=== PATIENT | male | born 1940 | race Caucasian/White ===

== ENCOUNTER 2018-02-26 16:35 | Inpatient (IN) | payer MEDICARE ==
[2018-02-26] MEDS ORDERED: cefTRIAXone IN SWFI 2,000 MG/20 ML SYRINGE IVP STA (16:55)
[2018-02-26] MEDS ORDERED: NITROGLYCERIN OINT 1 INCH/GM PACKET TOPICAL STA (16:55)
[2018-02-26] MEDS ORDERED: SODIUM CHLORIDE 0.9% 1,000 ML IV STA (16:55)
[2018-02-26] MEDS ORDERED: ALBUTEROL NEBULIZED 2.5 MG/3 ML INHALATION STA ×2 (16:55→17:02)
[2018-02-26] MEDS ORDERED: IPRATROPIUM 0.5 MG/2.5 ML NEBU INHALATION STA (16:55)
[2018-02-26] MEDS ORDERED: methylPREDNISolone SOD SUCCI 125 MG/2 ML VIAL IV STA (16:55)
[2018-02-26] MEDS ORDERED: IPRATROPIUM-ALBUTEROL 3 ML NEB INHALATION STA (17:01)
[2018-02-26 17:35] LABS: Basophils % (A) 0 %; Eosinophils # (A) 0.3 k/uL (0-0.7); Eosinophils % (A) 3 %; HCT 38.2 % (39.0-53.0); HGB 13.2 gm/dL (13.0-17.5); Lymphocytes # (A) 1.5 k/uL (1.0-4.8); Lymphocytes % (A) 14 %; MCH 31.1 pg (25.0-35.0); MCHC 34.5 g/dL (31.0-37.0); MCV 90.3 fL (80.0-100.0); Monocytes # (A) 0.4 k/uL (0-1.0); Monocytes % (A) 4 %; Neutrophils # (A) 7.8 k/uL (1.3-7.7); Neutrophils % (A) 78 %; Platelet Count 122 k/uL (150-450); RBC 4.23 m/uL (4.30-5.90); RDW 15.1 % (11.5-15.5); WBC 10.1 k/uL (3.8-10.6)
[2018-02-26 17:40] LABS: ALT 29 U/L (21-72); AST 21 U/L (17-59); Albumin 3.5 g/dL (3.5-5.0); Alkaline Phosphatase 58 U/L (38-126); Anion Gap 9 mmol/L; Blood Urea Nitrogen 16 mg/dL (9-20); Calcium 8.8 mg/dL (8.4-10.2); Carbon Dioxide 29 mmol/L (22-30); Chloride 100 mmol/L (98-107); Glucose 90 mg/dL (74-99); Potassium 3.6 mmol/L (3.5-5.1); Sodium 138 mmol/L (137-145); Total Bilirubin 0.4 mg/dL (0.2-1.3); Total Protein 5.7 g/dL (6.3-8.2)
[2018-02-26 17:42] LABS: D-Dimer 0.43 mg/L FEU (<0.60); Partial Thromboplastin Time 23.6 sec (22.0-30.0); Prothrombin Time 9.5 sec (9.0-12.0)
[2018-02-26 17:54] LABS: Creatine Kinase 31 U/L (55-170)
[2018-02-26 18:07] LABS: Creatine Kinase MB 0.9 ng/mL (0.0-2.4); Troponin I <0.012 ng/mL (0.000-0.034)
[2018-02-26 18:15] LABS: ABG Base Excess 7.1 mmol/L; ABG HCO3 30 mmol/L (21-25); ABG Oxygen Saturation 89.8 % (94-97); ABG PCO2 36 mmHg (35-45); ABG PH 7.53 (7.35-7.45); ABG PO2 49 mmHg (83-108); ABG TCO2 31 mmol/L (19-24)
--- NOTE | 2018-02-26 18:44 | XR ---
EXAMINATION TYPE: XR chest 1V portable DATE OF EXAM: 02/26/2018 COMPARISON: NONE HISTORY: Short of breath TECHNIQUE: Single frontal view of the chest is obtained. FINDINGS: There are bilateral basilar pulmonary infiltrates. There is no heart failure. Heart size i s normal. There are chest leads. There is poor inspiration. IMPRESSION: New bilateral lower lobe pneumonia and atelectasis compared to old exam. No heart failur e.
[2018-02-26] MEDS ORDERED: AZITHROMYCIN 500 MG TAB PO STA (19:13)
[2018-02-26] MEDS ORDERED: PNEUMONIA PROTOCOL UTILIZED 1 EACH MISC PO PRN (19:22)
--- NOTE | 2018-02-26 19:22 | ED ---
SOB HPI - General Chief Complaint: Shortness of Breath Stated Complaint: chest pain Time Seen by Provider: 02/26/18 16:53 Source: patient Mode of arrival: ambulatory Limitations: no limitations - History of Present Illness Initial Comments: 77 years old male comes in with a shortness of breath is also complaining about the chest pain he said the chest. He had when he takes a deep breath he also had a fever on arrival his O2 sat was quite low his O2 sat was 86% with 2 L. He denies any abdominal pain no frequency urgency dysuria no symptoms of TIA or CVA - Related Data Home Medications Medication Instructions Recorded Confirmed Albuterol Sulfate [Proventil Hfa] 1 puff INHALATION RT-TID PRN 06/01/15 02/26/18 Allopurinol [Zyloprim] 300 mg PO DAILY 06/01/15 02/26/18 Aspirin 81 mg PO DAILY 06/01/15 02/26/18 Budesonide-Formot 160-4.5 Mcg 2 puff INHALATION RT-BID 06/01/15 02/26/18 [Symbicort 160-4.5 Mcg Inhaler] Carvedilol [Coreg] 3.125 mg PO BID 06/01/15 02/26/18 Finasteride [Proscar] 10 mg PO DAILY 06/01/15 02/26/18 Hydrochlorothiazide [Hydrodiuril] 25 mg PO DAILY 06/01/15 02/26/18 Levothyroxine Sodium [Synthroid] 50 mcg PO DAILY 06/01/15 02/26/18 Omeprazole [PriLOSEC] 20 mg PO AC-BID 06/01/15 02/26/18 Tamsulosin HCl [Flomax] 0.8 mg PO DAILY 06/01/15 02/26/18 Acetylcysteine [Mucomyst 10%] 500 mg INHALATION RT-BID 02/26/18 02/26/18 Albuterol Nebulized [Ventolin 2.5 mg INHALATION RT-BID 02/26/18 02/26/18 Nebulized] Amitriptyline HCl [Elavil] 50 mg PO HS 02/26/18 02/26/18 Bacitracin Oint 1 applic TOPICAL TID 02/26/18 02/26/18 Cephalexin [Keflex] 500 mg PO TID 02/26/18 02/26/18 Fluticasone Nasal [place] [Flonase 1 spray EA NOSTRIL BID 02/26/18 02/26/18 Nasal [place]] HYDROcodone/APAP 7.5-325MG [[place] 1 tab PO Q4-6H PRN 02/26/18 02/26/18 7.5-325] Ibuprofen [Motrin Ib] 200 mg PO ONCE PRN 02/26/18 02/26/18 Montelukast [Singulair] 10 mg PO HS 02/26/18 02/26/18 Nitroglycerin Sl Tabs [Nitrostat] 0.4 mg SUBLINGUAL Q5M PRN 02/26/18 02/26/18 Pregabalin [Lyrica] 150 mg PO BID 02/26/18 02/26/18 Sodium Chloride 0.65% Nasal [Deep 2 spray NASAL 5XD 02/26/18 02/26/18 Sea (Saline)] Tiotropium 18 Mcg/Puff [Spiriva] 1 cap INHALATION RT-DAILY 02/26/18 02/26/18 Allergies Allergy/AdvReac Type Severity Reaction Status Date / Time No Known Allergies Allergy Verified 02/26/18 16:53 Review of Systems ROS Statement: Those systems with pertinent positive or pertinent negative responses have been documented in the HPI. ROS Other: All systems not noted in ROS Statement are negative. Past Medical History Past Medical History: Asthma, COPD, GERD/Reflux, Hyperlipidemia, Hypertension, Osteoarthritis (OA), Pneumonia, Prostate Disorder, Sleep Apnea/CPAP/BIPAP, Thyroid Disorder Additional Past Medical History / Comment(s): GOUT; EDEMA IN FEET. History of Any Multi-Drug Resistant Organisms: None Reported Past Surgical History: Heart Catheterization, Hernia Repair Additional Past Surgical History / Comment(s): EXC ZEYAD CATARACTS. HIATAL HERNIA REPAIR. Past Anesthesia/Blood Transfusion Reactions: No Reported Reaction Past Psychological History: No Psychological Hx Reported Smoking Status: Former smoker Past Alcohol Use History: Occasional Past Drug Use History: None Reported - Past Family History Sister(s) Family Medical History: Cancer General Exam Limitations: no limitations Course Vital Signs 02/26/18 02/26/18 02/26/18 16:39 17:08 17:23 Temperature 98.5 F Pulse Rate 100 90 90 Respiratory 36 H 22 Rate Blood Pressure 130/68 119/60 O2 Sat by Pulse 84 L 91 L Oximetry 02/26/18 02/26/1818 17:24 17:50 18:08 Temperature 100.3 F H Pulse Rate 86 84 Respiratory 26 H 22 Rate Blood Pressure 123/59 119/56 O2 Sat by Pulse 91 L 91 L Oximetry 02/26/18 19:06 Temperature Pulse Rate 80 Respiratory Rate Blood Pressure 122/61 O2 Sat by Pulse 93 L Oximetry EKG is normal sinus rhythm ventricular rate is 97 SD interval is 154 QRS duration is 88 QT/QTc is 344/436 review of this EKG does not reveal any ST elevation or ST depression Medical Decision Making - Lab Data Result diagrams: 02/26/18 17:20 02/26/18 17:20 Lab Results 02/26/18 02/26/18 02/26/18 Range/Units 17:20 17:20 17:20 WBC 10.1 (3.8-10.6) k/uL RBC 4.23 L (4.30-5.90) m/uL Hgb 13.2 (13.0-17.5) gm/dL Hct 38.2 L (39.0-53.0) % MCV 90.3 (80.0-100.0) fL MCH 31.1 (25.0-35.0) pg MCHC 34.5 (31.0-37.0) g/dL RDW 15.1 (11.5-15.5) % Plt Count 122 L (150-450) k/uL Neutrophils % 78 % Lymphocytes % 14 % Monocytes % 4 % Eosinophils % 3 % Basophils % 0 % Neutrophils # 7.8 H (1.3-7.7) k/uL Lymphocytes # 1.5 (1.0-4.8) k/uL Monocytes # 0.4 (0-1.0) k/uL Eosinophils # 0.3 (0-0.7) k/uL Basophils # 0.0 (0-0.2) k/uL PT (9.0-12.0) sec INR (<1.2) APTT (22.0-30.0) sec D-Dimer (<0.60) mg/L FEU Sample Site ABG pH (7.35-7.45) ABG pCO2 (35-45) mmHg ABG pO2 (83-108) mmHg ABG HCO3 (21-25) mmol/L ABG Total CO2 (19-24) mmol/L ABG O2 Saturation (94-97) % ABG Base Excess mmol/L Rob Test FiO2 % Sodium 138 (137-145) mmol/L Potassium 3.6 (3.5-5.1) mmol/L Chloride 100 (98-107) mmol/L Carbon Dioxide 29 (22-30) mmol/L Anion Gap 9 mmol/L BUN 16 (9-20) mg/dL Creatinine 0.90 (0.66-1.25) mg/dL Est GFR (CKD-EPI)AfAm >90 (>60 ml/min/1.73 sqM) Est GFR (CKD-EPI)NonAf 83 (>60 ml/min/1.73 sqM) Glucose 90 (74-99) mg/dL Calcium 8.8 (8.4-10.2) mg/dL Total Bilirubin 0.4 (0.2-1.3) mg/dL AST 21 (17-59) U/L ALT 29 (21-72) U/L Alkaline Phosphatase 58 (38-126) U/L Total Creatine Kinase 31 L (55-170) U/L CK-MB (CK-2) 0.9 (0.0-2.4) ng/mL CK-MB (CK-2) Rel Index 2.9 Troponin I <0.012 (0.000-0.034) ng/mL NT-Pro-B Natriuret Pep pg/mL Total Protein 5.7 L (6.3-8.2) g/dL Albumin 3.5 (3.5-5.0) g/dL 02/26/18 02/26/18 02/26/18 Range/Units 17:20 17:20 18:07 WBC (3.8-10.6) k/uL RBC (4.30-5.90) m/uL Hgb (13.0-17.5) gm/dL Hct (39.0-53.0) % MCV (80.0-100.0) fL MCH (25.0-35.0) pg MCHC (31.0-37.0) g/dL RDW (11.5-15.5) % Plt Count (150-450) k/uL Neutrophils % % Lymphocytes % % Monocytes % % Eosinophils % % Basophils % % Neutrophils # (1.3-7.7) k/uL Lymphocytes # (1.0-4.8) k/uL Monocytes # (0-1.0) k/uL Eosinophils # (0-0.7) k/uL Basophils # (0-0.2) k/uL PT 9.5 (9.0-12.0) sec INR 1.0 (<1.2) APTT 23.6 (22.0-30.0) sec D-Dimer 0.43 (<0.60) mg/L FEU Sample Site RAD ABG pH 7.53 H (7.35-7.45) ABG pCO2 36 (35-45) mmHg ABG pO2 49 L (83-108) mmHg ABG HCO3 30 H (21-25) mmol/L ABG Total CO2 31 H (19-24) mmol/L ABG O2 Saturation 89.8 L (94-97) % ABG Base Excess 7.1 mmol/L Rob Test Yes FiO2 30 % Sodium (137-145) mmol/L Potassium (3.5-5.1) mmol/L Chloride (98-107) mmol/L Carbon Dioxide (22-30) mmol/L Anion Gap mmol/L BUN (9-20) mg/dL Creatinine (0.66-1.25) mg/dL Est GFR (CKD-EPI)AfAm (>60 ml/min/1.73 sqM) Est GFR (CKD-EPI)NonAf (>60 ml/min/1.73 sqM) Glucose (74-99) mg/dL Calcium (8.4-10.2) mg/dL Total Bilirubin (0.2-1.3) mg/dL AST (17-59) U/L ALT (21-72) U/L Alkaline Phosphatase (38-126) U/L Total Creatine Kinase (55-170) U/L CK-MB (CK-2) (0.0-2.4) ng/mL CK-MB (CK-2) Rel Index Troponin I (0.000-0.034) ng/mL NT-Pro-B Natriuret Pep 474 pg/mL Total Protein (6.3-8.2) g/dL Albumin (3.5-5.0) g/dL Critical Care Time Total Critical Care Time: 30 Critical Care Time: On arrival he was quite distressed out his respiratory rate was quite high he was using accessory muscles his O2 sat was 86% at that point we decided to start him on BiPAP in order the ABGs ABGs ABGs are reviewed I'd looks quite compensated is present in pH and bicarb is within normal range Treatments and steroids were given that helped him to feel better chest x-ray confirmed the infiltrate we start him on some Rocephin and Zithromax will consult Dr. chaves and I be admitted to Dr. Roy , his troponin is not elevated EKG rule out any myocardial infarction and d-dimer ruled out ruled out any pulmonary embolus with these findings were discussed with the patient Disposition Clinical Impression: COPD with acute exacerbation, Pneumonia, Hypoxia Disposition: ADMITTED IP TO THIS HOSP Condition: Good Referrals: [facility],Clinic [Primary Care Provider] - 1-2 days
[2018-02-26] MEDS ORDERED: IBUPROFEN 200 MG TAB PO PRN (19:27)
[2018-02-26] MEDS ORDERED: HYDROcodone/APAP 7.5-325MG 1 EACH TAB PO PRN (19:27)
[2018-02-26] MEDS ORDERED: NITROGLYCERIN SL TABS 0.4 MG TAB SUBLINGUAL PRN (19:27)
[2018-02-26] MEDS ORDERED: ALBUTEROL NEBULIZED 2.5 MG/3 ML INHALATION PRN (19:27)
[2018-02-26] MEDS: SYMBICORT 160-4.5 MCG INHALER INHALATION SCH (19:35)
[2018-02-26] MEDS: ALBUTEROL NEBULIZED 2.5 MG/3 ML INHALATION SCH (19:35)
[2018-02-26 21:48] VITALS: BMI 22.4
[2018-02-26] MEDS ORDERED: CEPHALEXIN 500 MG CAP PO SCH (22:00)
[2018-02-26] MEDS: FLUTICASONE 50MCG/SPRAY NASAL 16GM EA NOSTRIL SCH (22:05)
[2018-02-26] MEDS: AMITRIPTYLINE HCL 50 MG TAB PO SCH (22:06)
[2018-02-26] MEDS: CARVEDILOL 3.125 MG TAB PO SCH (22:06)
[2018-02-26] MEDS: BACITRACIN 500 UNIT/GM OINT 28.4 GM TUBE TOPICAL SCH (22:07)
[2018-02-26] MEDS: MONTELUKAST 10 MG TAB PO SCH (22:07)
[2018-02-26] MEDS: PREGABALIN 75 MG CAP PO SCH (22:09)
[2018-02-26] MEDS: SODIUM CHLORIDE 0.65% NASAL SPRAY 44 ML BTL NASAL SCH (22:17)
[2018-02-27] MEDS: SODIUM CHLORIDE 0.65% NASAL SPRAY 44 ML BTL NASAL SCH ×5 (00:03→20:10)
[2018-02-27 06:55] LABS: Basophils % (A) 0 %; Eosinophils % (A) 0 %; HCT 42.7 % (39.0-53.0); HGB 14.1 gm/dL (13.0-17.5); Lymphocytes # (A) 0.8 k/uL (1.0-4.8); Lymphocytes % (A) 7 %; MCH 30.6 pg (25.0-35.0); MCV 92.5 fL (80.0-100.0); Mean Platelet Volume 8.8; Monocytes # (A) 0.2 k/uL (0-1.0); Monocytes % (A) 2 %; Neutrophils # (A) 11.3 k/uL (1.3-7.7); Neutrophils % (A) 91 %; Platelet Count 153 k/uL (150-450); RBC 4.61 m/uL (4.30-5.90); RDW 15.2 % (11.5-15.5); WBC 12.4 k/uL (3.8-10.6)
[2018-02-27] MEDS: LEVOTHYROXINE 50 MCG TAB PO SCH (06:56)
[2018-02-27] MEDS: PANTOPRAZOLE 40 MG TABLET PO SCH (06:56)
[2018-02-27] MEDS: CARVEDILOL 3.125 MG TAB PO SCH ×2 (06:57→17:12)
[2018-02-27] MEDS: ALBUTEROL NEBULIZED 2.5 MG/3 ML INHALATION SCH ×2 (07:25→20:25)
[2018-02-27] MEDS: SYMBICORT 160-4.5 MCG INHALER INHALATION SCH ×2 (07:25→20:25)
--- NOTE | 2018-02-27 07:41 | XR ---
EXAMINATION TYPE: XR chest 2V DATE OF EXAM: 02/27/2018 COMPARISON: 02/26/2018 HISTORY: 77-year-old male pneumonia follow-up TECHNIQUE: Frontal and lateral views FINDINGS: Heart normal size. Aorta and pulmonary vasculature within normal limits. Flattening of hemidiaphragms and hyperinflation compatible with COPD. Improving patchy bibasilar densities. No pleural effusion. IMPRESSION: COPD with improving bibasilar infiltrates or atelectasis. Residual densities remain.
[2018-02-27] MEDS ORDERED: IPRATROPIUM 0.5 MG/2.5 ML NEBU INHALATION SCH (08:00)
[2018-02-27] MEDS ORDERED: HYDROCHLOROTHIAZIDE 25 MG TAB PO SCH (09:00)
[2018-02-27] MEDS ORDERED: methylPREDNISolone SOD SUCCI 125 MG/2 ML VIAL IV SCH (09:00)
--- NOTE | 2018-02-27 09:25 | P.CNPUL ---
History of Present Illness Consult date: 02/27/18 Requesting physician: Golden Roy Reason for consult: COPD Chief complaint: shortness of breath History of present illness: This is a 77-year-old male patient who is well-known to our services being seen examined and evaluated today on rounds. This patient came into the hospital with fevers at home as well as shortness of breath had been progressively getting worse over the last 2 days. The patient did recently have outpatient surgery at the for his nasal polyps. Patient states he was discharged home and ever since then has been feeling under the weather. At home he does use Symbicort Spiriva and pro-air. He states his MDIs were not helping him therefore he came in. He does have 2 L of supplemental oxygen at home at all times. When he came into the ER he was 86% on 2 L and required additional titration of oxygen. His chest x-ray did show new bilateral lower lobe pneumonia and atelectasis compared to his old exams. Upon examination the patient's resting up in bed on 2-1/2-3 L of supplemental oxygen. He states he is feeling somewhat better today however not at baseline. He did receive IV antibiotics in the emergency room. He has been responding well to his breathing treatments. He did receive 1 dose of IV steroids, additional scheduled steroids will be ordered. Review of Systems 14 point review of systems was completed and is negative unless noted above in HPI Past Medical History Past Medical History: Asthma, COPD, GERD/Reflux, Hyperlipidemia, Hypertension, Osteoarthritis (OA), Pneumonia, Prostate Disorder, Sleep Apnea/CPAP/BIPAP, Thyroid Disorder Additional Past Medical History / Comment(s): GOUT; EDEMA IN FEET. History of Any Multi-Drug Resistant Organisms: None Reported Past Surgical History: Heart Catheterization, Hernia Repair Additional Past Surgical History / Comment(s): EXC ZEYAD CATARACTS. HIATAL HERNIA REPAIR. nose s02-24-2018 in [facility] Past Anesthesia/Blood Transfusion Reactions: No Reported Reaction Smoking Status: Former smoker - Past Family History Sister(s) Family Medical History: Cancer Medications and Allergies Home Medications Medication Instructions Recorded Confirmed Type Albuterol Sulfate [Proventil Hfa] 1 puff INHALATION RT-TID PRN 06/01/15 History Allopurinol [Zyloprim] 300 mg PO DAILY 06/01/15 02/26/18 History Aspirin 81 mg PO DAILY 06/01/15 02/26/18 History Budesonide-Formot 160-4.5 Mcg 2 puff INHALATION RT-BID 06/01/15 02/26/18 History [Symbicort 160-4.5 Mcg Inhaler] Carvedilol [Coreg] 3.125 mg PO BID 06/01/15 02/26/18 History Finasteride [Proscar] 10 mg PO DAILY 06/01/15 02/26/18 History Hydrochlorothiazide [Hydrodiuril] 25 mg PO DAILY 06/01/15 02/26/18 History Levothyroxine Sodium [Synthroid] 50 mcg PO DAILY 06/01/15 02/26/18 History Omeprazole [PriLOSEC] 20 mg PO AC-BID 06/01/15 02/26/18 History Tamsulosin HCl [Flomax] 0.8 mg PO DAILY 06/01/15 02/26/18 History Acetylcysteine [Mucomyst 10%] 500 mg INHALATION RT-BID 02/26/18 02/26/18 History Albuterol Nebulized [Ventolin 2.5 mg INHALATION RT-BID 02/26/18 02/26/18 History Nebulized] Amitriptyline HCl [Elavil] 50 mg PO HS 02/26/18 02/26/18 History Bacitracin Oint 1 applic TOPICAL TID 02/26/18 02/26/18 History Cephalexin [Keflex] 500 mg PO TID 02/26/18 02/26/18 History Fluticasone Nasal [place] [Flonase 1 spray EA NOSTRIL BID 02/26/18 02/26/18 History Nasal [place]] HYDROcodone/APAP 7.5-325MG [[place] 1 tab PO Q4-6H PRN 02/26/18 02/26/18 History 7.5-325] Ibuprofen [Motrin Ib] 200 mg PO ONCE PRN 02/26/18 02/26/18 History Montelukast [Singulair] 10 mg PO HS 02/26/18 02/26/18 History Nitroglycerin Sl Tabs [Nitrostat] 0.4 mg SUBLINGUAL Q5M PRN 02/26/18 02/26/18 History Pregabalin [Lyrica] 150 mg PO BID 02/26/18 02/26/18 History Sodium Chloride 0.65% Nasal [Deep 2 spray NASAL 5XD 02/26/18 02/26/18 History Sea (Saline)] Tiotropium 18 Mcg/Puff [Spiriva] 1 cap INHALATION RT-DAILY 02/26/18 02/26/18 History Allergies Allergy/AdvReac Type Severity Reaction Status Date / Time No Known Allergies Allergy Verified 02/26/18 16:53 Physical Exam Vitals: Vital Signs Temp Pulse Pulse Resp BP BP Pulse Ox 02/27/18 07:26 93 L 02/27/18 07:25 88 02/27/18 03:39 87 18 02/27/18 03:37 97.1 F L 87 18 120/64 92 L 02/26/18 23:24 83 17 02/26/18 23:20 97.1 F L 83 17 107/61 92 L 02/26/18 22:00 76 18 02/26/18 21:43 98.1 F 76 18 123/73 93 L 02/26/18 20:28 98.1 F 82 76 20 129/64 123/73 93 L 02/26/18 19:45 81 02/26/18 19:35 80 02/26/18 19:26 22 96 02/26/18 19:06 80 122/61 93 L 02/26/18 18:08 84 119/56 91 L 02/26/18 17:50 100.3 F H 86 22 123/59 91 L 02/26/18 17:24 26 H 02/26/18 17:23 90 02/26/18 17:08 90 22 119/60 91 L 02/26/18 16:39 98.5 F 100 36 H 130/68 84 L Intake and Output 02/26/18 02/27/18 02/27/18 22:59 06:59 14:59 Intake Total 800 240 Balance 800 240 Intake: Intake, IV Titration 600 Amount Sodium Chloride 0.9% 1, 600 000 ml @ 75 mls/hr IV . [id number] STA Rx#:[id number] Oral 200 240 Other: Voiding Method Toilet Toilet # Voids 1 2 Weight 71.1 kg 77.6 kg GENERAL EXAM: Alert, tired, comfortable in no apparent distress. HEAD: Normocephalic. EYES: Normal reaction of pupils, equal size. NOSE: Clear with pink turbinates. THROAT: No erythema or exudates. NECK: No masses, no JVD. CHEST: No chest wall deformity. LUNGS: Lung sounds decreased, faint bilateral expiratory wheeze CVS: S1 and S2 normal with no audible mumurs, regular rhythm. ABDOMEN: No hepatosplenomegaly, normal bowel sounds, no guarding or rigidity. EXTREMITIES: No edema noted, pedal pulses palpable. CENTRAL NERVOUS SYSTEM: No focal deficits, tone is normal in all 4 extremities. Results - Laboratory Findings CBC and BMP: 02/27/18 05:53 02/27/18 05:53 ABG ABG pH 7.53 (7.35-7.45) H 02/26/18 18:07 ABG pCO2 36 mmHg (35-45) 02/26/18 18:07 ABG pO2 49 mmHg (83-108) L 02/26/18 18:07 ABG O2 Saturation 89.8 % (94-97) L 02/26/18 18:07 PT/INR, D-dimer PT 9.5 sec (9.0-12.0) 02/26/18 17:20 INR 1.0 (<1.2) 02/26/18 17:20 D-Dimer 0.43 mg/L FEU (<0.60) 02/26/18 17:20 Abnormal lab findings: Abnormal Labs 02/26/18 02/26/18 02/26/18 17:20 17:20 17:20 WBC RBC 4.23 L Hct 38.2 L Plt Count 122 L Neutrophils # 7.8 H Lymphocytes # ABG pH ABG pO2 ABG HCO3 ABG Total CO2 ABG O2 Saturation Glucose Total Creatine Kinase 31 L Total Protein 5.7 L 02/26/18 02/27/18 02/27/18 18:07 05:53 05:53 WBC 12.4 H RBC Hct Plt Count Neutrophils # 11.3 H Lymphocytes # 0.8 L ABG pH 7.53 H ABG pO2 49 L ABG HCO3 30 H ABG Total CO2 31 H ABG O2 Saturation 89.8 L Glucose 199 H Total Creatine Kinase Total Protein - Diagnostic Findings Chest x-ray: report reviewed, image reviewed Assessment and Plan Assessment: Assessment Acute exacerbation of COPD Acute on chronic hypoxic respiratory failure requiring supplemental oxygen Bilateral pneumonia, suspect mixed bacterial Acute exacerbation of chronic moderate persistent asthma Status post recent outpatient nasal surgery at Obstructive sleep apnea Hypertension Hyperlipidemia Plan Medications have been reviewed and will be continued as ordered. Continue with antibiotics and IV steroids Continue with pulmonary hygiene, coughing and deep breathing exercises, and supportive care. Supplemental oxygen to maintain oxygen saturations of 92% or better. Continue nebulizer treatments. Initiate and encourage incentive spirometer Obtain sputum culture GI and DVT prophylaxis. We will continue to monitor labs/results and adjust treatment as necessary. Further recommendations pending. Patient for this consultation we will continue to follow this patient with you I performed an examination of the patient and discussed their management with the nurse practitioner. I have reviewed the nurse practitioner's note and agree with the documented findings and plan of care.
[2018-02-27] MEDS: FINASTERIDE 5 MG TAB PO SCH (09:55)
[2018-02-27] MEDS: AZITHROMYCIN 500 MG TAB PO SCH (09:55)
[2018-02-27] MEDS: TAMSULOSIN 0.4 MG CAP.ER.24H PO SCH (09:55)
[2018-02-27] MEDS: ALLOPURINOL 300 MG TAB PO SCH (09:56)
[2018-02-27] MEDS: ASPIRIN 81 MG PO SCH (09:56)
[2018-02-27] MEDS: BACITRACIN 500 UNIT/GM OINT 28.4 GM TUBE TOPICAL SCH ×3 (09:56→20:09)
[2018-02-27] MEDS: FLUTICASONE 50MCG/SPRAY NASAL 16GM EA NOSTRIL SCH ×2 (09:57→20:14)
[2018-02-27] MEDS: PREGABALIN 75 MG CAP PO SCH ×2 (10:06→20:13)
[2018-02-27] MEDS: cefTRIAXone IN SWFI 1,000 MG/10 ML SYRINGE IVP SCH (10:06)
[2018-02-27 11:37] LABS: Glucose,Whole Blood 276 mg/dL (75-99)
[2018-02-27] MEDS: INSULIN ASPART 100 UNIT/ML 1 ML 10 ML VIAL SQ SCH ×3 (12:05→20:59)
--- NOTE | 2018-02-27 12:07 | P.HPIM ---
History of Present Illness 77-year-old pleasant gentleman with known history of COPD uses 2 L of onset at home came in with complaints of a fever chills does have leukocytosis appears to have bilateral lower lower leg but infiltrates. Patient is saturating at the 86% on arrival to ER. Patient was according. 3 L of oxygen patient was started on antibiotics for pneumonia. Patient had a recent massive procedure which is a nasal polyp removal. Patient was comparing of cough with sputum production. Patient does not have any significant wheezing on exam also which IV steroids to oral steroids. Patient will be continued on antibiotics. Used to be a smoker quit smoking years ago. Review of Systems REVIEW OF SYSTEMS: CONSTITUTIONAL: As mentioned in HPI. HEENT: No recent visual problems or hearing problems. Denied any sore throat. CARDIOVASCULAR: No chest pain, orthopnea, PND, no palpitations, no syncope. PULMONARY: no hemoptysis. GASTROINTESTINAL: No diarrhea, no nausea, no vomiting, no abdominal pain. Normoactive bowel sounds. NEUROLOGICAL: No headaches, no weakness, no numbness. HEMATOLOGICAL: Denies any bleeding or petechiae. GENITOURINARY: Denies any burning micturition, frequency, or urgency. MUSCULOSKELETAL/RHEUMATOLOGICAL: Denies any joint pain, swelling, or any muscle pain. ENDOCRINE: Denies any polyuria or polydipsia. The rest of the 14-point review of systems is negative. Past Medical History Past Medical History: Asthma, COPD, GERD/Reflux, Hyperlipidemia, Hypertension, Osteoarthritis (OA), Pneumonia, Prostate Disorder, Sleep Apnea/CPAP/BIPAP, Thyroid Disorder Additional Past Medical History / Comment(s): GOUT; EDEMA IN FEET. History of Any Multi-Drug Resistant Organisms: None Reported Past Surgical History: Heart Catheterization, Hernia Repair Additional Past Surgical History / Comment(s): EXC ZEYAD CATARACTS. HIATAL HERNIA REPAIR. nose s02-24-2018 in [facility] Past Anesthesia/Blood Transfusion Reactions: No Reported Reaction Smoking Status: Former smoker - Past Family History Sister(s) Family Medical History: Cancer Medications and Allergies Home Medications Medication Instructions Recorded Confirmed Type Albuterol Sulfate [Proventil Hfa] 1 puff INHALATION RT-TID PRN 06/01/15 History Allopurinol [Zyloprim] 300 mg PO DAILY 06/01/15 02/26/18 History Aspirin 81 mg PO DAILY 06/01/15 02/26/18 History Budesonide-Formot 160-4.5 Mcg 2 puff INHALATION RT-BID 06/01/15 02/26/18 History [Symbicort 160-4.5 Mcg Inhaler] Carvedilol [Coreg] 3.125 mg PO BID 06/01/15 02/26/18 History Finasteride [Proscar] 10 mg PO DAILY 06/01/15 02/26/18 History Hydrochlorothiazide [Hydrodiuril] 25 mg PO DAILY 06/01/15 02/26/18 History Levothyroxine Sodium [Synthroid] 50 mcg PO DAILY 06/01/15 02/26/18 History Omeprazole [PriLOSEC] 20 mg PO AC-BID 06/01/15 02/26/18 History Tamsulosin HCl [Flomax] 0.8 mg PO DAILY 06/01/15 02/26/18 History Acetylcysteine [Mucomyst 10%] 500 mg INHALATION RT-BID 02/26/18 02/26/18 History Albuterol Nebulized [Ventolin 2.5 mg INHALATION RT-BID 02/26/18 02/26/18 History Nebulized] Amitriptyline HCl [Elavil] 50 mg PO HS 02/26/18 02/26/18 History Bacitracin Oint 1 applic TOPICAL TID 02/26/18 02/26/18 History Cephalexin [Keflex] 500 mg PO TID 02/26/18 02/26/18 History Fluticasone Nasal [place] [Flonase 1 spray EA NOSTRIL BID 02/26/18 02/26/18 History Nasal [place]] HYDROcodone/APAP 7.5-325MG [[place] 1 tab PO Q4-6H PRN 02/26/18 02/26/18 History 7.5-325] Ibuprofen [Motrin Ib] 200 mg PO ONCE PRN 02/26/18 02/26/18 History Montelukast [Singulair] 10 mg PO HS 02/26/18 02/26/18 History Nitroglycerin Sl Tabs [Nitrostat] 0.4 mg SUBLINGUAL Q5M PRN 02/26/18 02/26/18 History Pregabalin [Lyrica] 150 mg PO BID 02/26/18 02/26/18 History Sodium Chloride 0.65% Nasal [Deep 2 spray NASAL 5XD 02/26/18 02/26/18 History Sea (Saline)] Tiotropium 18 Mcg/Puff [Spiriva] 1 cap INHALATION RT-DAILY 02/26/18 02/26/18 History Allergies Allergy/AdvReac Type Severity Reaction Status Date / Time No Known Allergies Allergy Verified 02/26/18 16:53 Physical Exam Vitals: Vital Signs Temp Pulse Pulse Resp BP BP Pulse Ox 02/27/18 07:50 97.0 F L 65 18 123/70 90 L 02/27/18 07:26 93 L 02/27/18 07:25 88 02/27/18 03:39 87 18 02/27/18 03:37 97.1 F L 87 18 120/64 92 L 02/26/18 23:24 83 17 02/26/18 23:20 97.1 F L 83 17 107/61 92 L 02/26/18 22:00 76 18 02/26/18 21:43 98.1 F 76 18 123/73 93 L 02/26/18 20:28 98.1 F 82 76 20 129/64 123/73 93 L 02/26/18 19:45 81 02/26/18 19:35 80 02/26/18 19:26 22 96 02/26/18 19:06 80 122/61 93 L 02/26/18 18:08 84 119/56 91 L 02/26/18 17:50 100.3 F H 86 22 123/59 91 L 02/26/18 17:24 26 H 02/26/18 17:23 90 02/26/18 17:08 90 22 119/60 91 L 02/26/18 16:39 98.5 F 100 36 H 130/68 84 L Intake and Output 02/26/18 02/27/18 02/27/18 22:59 06:59 14:59 Intake Total 800 240 Balance 800 240 Intake: Intake, IV Titration 600 Amount Sodium Chloride 0.9% 1, 600 000 ml @ 75 mls/hr IV . [id number] Rx#:[id number] Oral 200 240 Other: Voiding Method Toilet Toilet # Voids 1 2 Weight 71.1 kg 77.6 kg PHYSICAL EXAMINATION: GENERAL: The patient is alert and oriented x3, not in any acute distress. Well developed, well nourished. She does have a Simón's and does have chills when I examine the patient. HEENT: Pupils are round and equally reacting to light. EOMI. No scleral icterus. No conjunctival pallor. Normocephalic, atraumatic. No pharyngeal erythema. No thyromegaly. CARDIOVASCULAR: S1 and S2 present. No murmurs, rubs, or gallops. PULMONARY: Minimal expiratory wheezing was appreciated no crackles are appreciated on lung exam. ABDOMEN: Soft, nontender, nondistended, normoactive bowel sounds. No palpable organomegaly. MUSCULOSKELETAL: No joint swelling or deformity. EXTREMITIES: No cyanosis, clubbing, or pedal edema. NEUROLOGICAL: Gross neurological examination did not reveal any focal deficits. SKIN: No rashes. Results CBC & Chem 7: 02/27/18 05:53 02/27/18 05:53 Labs: Abnormal Lab Results - Last 24 Hours (Table) 02/26/18 02/26/18 02/26/18 Range/Units 17:20 17:20 17:20 WBC (3.8-10.6) k/uL RBC 4.23 L (4.30-5.90) m/uL Hct 38.2 L (39.0-53.0) % Plt Count 122 L (150-450) k/uL Neutrophils # 7.8 H (1.3-7.7) k/uL Lymphocytes # (1.0-4.8) k/uL ABG pH (7.35-7.45) ABG pO2 (83-108) mmHg ABG HCO3 (21-25) mmol/L ABG Total CO2 (19-24) mmol/L ABG O2 Saturation (94-97) % Glucose (74-99) mg/dL POC Glucose (mg/dL) (75-99) mg/dL Total Creatine Kinase 31 L (55-170) U/L Total Protein 5.7 L (6.3-8.2) g/dL 02/26/18 02/27/18 02/27/18 Range/Units 18:07 05:53 05:53 WBC 12.4 H (3.8-10.6) k/uL RBC (4.30-5.90) m/uL Hct (39.0-53.0) % Plt Count (150-450) k/uL Neutrophils # 11.3 H (1.3-7.7) k/uL Lymphocytes # 0.8 L (1.0-4.8) k/uL ABG pH 7.53 H (7.35-7.45) ABG pO2 49 L (83-108) mmHg ABG HCO3 30 H (21-25) mmol/L ABG Total CO2 31 H (19-24) mmol/L ABG O2 Saturation 89.8 L (94-97) % Glucose 199 H (74-99) mg/dL POC Glucose (mg/dL) (75-99) mg/dL Total Creatine Kinase (55-170) U/L Total Protein (6.3-8.2) g/dL 02/27/18 Range/Units 11:22 WBC (3.8-10.6) k/uL RBC (4.30-5.90) m/uL Hct (39.0-53.0) % Plt Count (150-450) k/uL Neutrophils # (1.3-7.7) k/uL Lymphocytes # (1.0-4.8) k/uL ABG pH (7.35-7.45) ABG pO2 (83-108) mmHg ABG HCO3 (21-25) mmol/L ABG Total CO2 (19-24) mmol/L ABG O2 Saturation (94-97) % Glucose (74-99) mg/dL POC Glucose (mg/dL) 276 H (75-99) mg/dL Total Creatine Kinase (55-170) U/L Total Protein (6.3-8.2) g/dL Thrombosis Risk Factor Assmnt - Choose All That Apply Each Factor Represents 1 point: Serious lung disease incl. pneumonia (< 1month) Other Risk Factors: No Other congenital or acquired thrombophilia - If yes, enter type in comment: No Thrombosis Risk Factor Assessment Total Risk Factor Score: 1 Thrombosis Risk Factor Assessment Level: Low Risk Assessment and Plan Plan: -Sepsis probably secondary to bilateral pneumonia, mostly pneumococcal pneumonia patient is on Rocephin and azithromycin which will be continued -Acute on chronic hypercapnic respiratory failure secondary to COPD exacerbation as there is no significant wheezing all switch him to oral steroids. Awaiting blood cultures and sputum cultures. -Asked her to sleep apnea -hypertension -Hyperlipidemia -Gastroesophageal reflux disease -Hypothyroidism Or omission chronic medical problems patient will be resumed and continued on appropriate home medications.
[2018-02-27 16:54] LABS: Glucose,Whole Blood 242 mg/dL (75-99)
[2018-02-27 19:30] LABS: Hemoglobin A1C 5.2 % (4.0-6.0)
[2018-02-27] MEDS: MONTELUKAST 10 MG TAB PO SCH (20:09)
[2018-02-27] MEDS: AMITRIPTYLINE HCL 50 MG TAB PO SCH (20:10)
[2018-02-27 20:27] LABS: Glucose,Whole Blood 275 mg/dL (75-99)
[2018-02-27] MEDS ORDERED: FAMOTIDINE 20 MG TAB PO SCH (21:00)
[2018-02-28] MEDS: SODIUM CHLORIDE 0.65% NASAL SPRAY 44 ML BTL NASAL SCH ×3 (00:06→12:11)
[2018-02-28 00:48] VITALS: RESP 16
[2018-02-28] MEDS: LEVOTHYROXINE 50 MCG TAB PO SCH (06:09)
[2018-02-28 06:23] VITALS: BP 124/68; TEMP 97.6
[2018-02-28 07:01] LABS: Glucose,Whole Blood 187 mg/dL (75-99)
[2018-02-28] MEDS: INSULIN ASPART 100 UNIT/ML 1 ML 10 ML VIAL SQ SCH ×2 (07:24→12:11)
[2018-02-28 07:32] LABS: HCT 37.3 % (39.0-53.0); HGB 12.8 gm/dL (13.0-17.5); MCHC 34.3 g/dL (31.0-37.0); MCV 90.3 fL (80.0-100.0); Mean Platelet Volume 9.5; Platelet Count 137 k/uL (150-450); RBC 4.13 m/uL (4.30-5.90); RDW 14.8 % (11.5-15.5); WBC 15.5 k/uL (3.8-10.6)
[2018-02-28 07:45] LABS: Anion Gap 11 mmol/L; Blood Urea Nitrogen 22 mg/dL (9-20); Carbon Dioxide 30 mmol/L (22-30); Chloride 101 mmol/L (98-107); Glucose 156 mg/dL (74-99); Potassium 3.9 mmol/L (3.5-5.1); Sodium 142 mmol/L (137-145)
[2018-02-28] MEDS: SYMBICORT 160-4.5 MCG INHALER INHALATION SCH (08:50)
[2018-02-28] MEDS: ALBUTEROL NEBULIZED 2.5 MG/3 ML INHALATION SCH (08:50)
[2018-02-28] MEDS: cefTRIAXone IN SWFI 1,000 MG/10 ML SYRINGE IVP SCH (08:56)
[2018-02-28] MEDS: PANTOPRAZOLE 40 MG TABLET PO SCH (08:57)
[2018-02-28] MEDS: TAMSULOSIN 0.4 MG CAP.ER.24H PO SCH ×2 (08:57→09:19)
[2018-02-28] MEDS: AZITHROMYCIN 500 MG TAB PO SCH (08:57)
[2018-02-28] MEDS: CARVEDILOL 3.125 MG TAB PO SCH (08:57)
[2018-02-28] MEDS: ALLOPURINOL 300 MG TAB PO SCH (08:57)
[2018-02-28] MEDS: FLUTICASONE 50MCG/SPRAY NASAL 16GM EA NOSTRIL SCH ×2 (08:57→09:17)
[2018-02-28] MEDS: FINASTERIDE 5 MG TAB PO SCH (08:57)
[2018-02-28] MEDS: PREGABALIN 75 MG CAP PO SCH (08:57)
[2018-02-28] MEDS: ASPIRIN 81 MG PO SCH ×2 (08:57→09:17)
[2018-02-28] MEDS: BACITRACIN 500 UNIT/GM OINT 28.4 GM TUBE TOPICAL SCH ×2 (08:58→09:17)
[2018-02-28] MEDS ORDERED: predniSONE 20 MG TAB PO SCH (09:00)
[2018-02-28 09:04] VITALS: PULSE 84
--- NOTE | 2018-02-28 10:47 | PN ---
PROGRESS NOTE He was seen again on 02/01/2018. He has been hemodynamically stable and doing better overall. He has been afebrile since the . PHYSICAL EXAMINATION: On physical examination his vitals are stable. He is afebrile. His chest is relatively clear. Cardiovascular system reveals an S1, S2. Abdomen is soft. There is no pedal edema. White count of 15.5, hemoglobin of 12.8. Microbiological cultures have had no growth. IMPRESSION AT THIS TIME: 1. Aspiration type pneumonia. 2. Chronic obstructive pulmonary disease with acute exacerbation. Would switch him to Augmentin, increase his activity level. Agree with possible discharge planning today or tomorrow with a quick steroid taper. MMODL / IJN: [id number] /
--- NOTE | 2018-02-28 11:26 | P.DS ---
Providers Date of admission: 02/26/18 19:22 Attending physician: Golden Roy Consults: 02/26/18 19:22 Consult Physician Stat Consulting Provider: Jaguar Bynum Consult Reason/Comments: Acute exacerbation of COPD Do you want consulting provider notified?: Yes Primary care physician: [facility] Hospital Course: 77-year-old admitted for COPD exacerbation and bilateral lower lobe pneumonia patient is feeling better wanted to be discharged. Patient will be discharged on Augmentin for 7 more days patient is cleared for discharge. Patient ideally will benefit from one more day of hospitalization but the wishing to go home because of which I'm discharge and the patient patient uses 2-3 L at home patient is on presently on 3 L of oxygen patient has minimal wheezing on exam. And bibasilar crackles were appreciated. PHYSICAL EXAMINATION: GENERAL: The patient is alert and oriented x3, not in any acute distress. Well developed, well nourished. HEENT: Pupils are round and equally reacting to light. EOMI. No scleral icterus. No conjunctival pallor. Normocephalic, atraumatic. No pharyngeal erythema. No thyromegaly. CARDIOVASCULAR: S1 and S2 present. No murmurs, rubs, or gallops. PULMONARY: minimal expiratory wheezing was appreciated. ABDOMEN: Soft, nontender, nondistended, normoactive bowel sounds. No palpable organomegaly. MUSCULOSKELETAL: No joint swelling or deformity. EXTREMITIES: No cyanosis, clubbing, or pedal edema. NEUROLOGICAL: Gross neurological examination did not reveal any focal deficits. SKIN: No rashes. Assessment and Plan Plan: -Sepsis probably secondary to bilateral pneumonia, mostly pneumococcal pneumonia all aspiration ammonia patient is being discharged on Augmentin -Acute on chronic hypercapnic respiratory failure secondary to COPD exacerbation improved wheezing -Obstructive sleep apnea -hypertension -Hyperlipidemia -Gastroesophageal reflux disease -Hypothyroidism Patient Condition at Discharge: Good Plan - Discharge Summary Discharge Rx Participant: No New Discharge Prescriptions: New Amoxic-Pot Clav 500-125 mg [Augmentin 500-125 mg] 1 each PO BID #14 tab predniSONE 10 mg PO DAILY #30 tab Continue Aspirin 81 mg PO DAILY Budesonide-Formot 160-4.5 Mcg [Symbicort 160-4.5 Mcg Inhaler] 2 puff INHALATION RT-BID Albuterol Sulfate [Proventil Hfa] 1 puff INHALATION RT-TID PRN PRN Reason: Shortness Of Breath Tamsulosin HCl [Flomax] 0.8 mg PO DAILY Omeprazole [PriLOSEC] 20 mg PO AC-BID Allopurinol [Zyloprim] 300 mg PO DAILY Carvedilol [Coreg] 3.125 mg PO BID Levothyroxine Sodium [Synthroid] 50 mcg PO DAILY Finasteride [Proscar] 10 mg PO DAILY Nitroglycerin Sl Tabs [Nitrostat] 0.4 mg SUBLINGUAL Q5M PRN PRN Reason: Chest Pain Montelukast [Singulair] 10 mg PO HS Amitriptyline HCl [Elavil] 50 mg PO HS Tiotropium 18 Mcg/Puff [Spiriva] 1 cap INHALATION RT-DAILY Sodium Chloride 0.65% Nasal [[place] (Saline)] 2 spray NASAL 5XD Pregabalin [Lyrica] 150 mg PO BID HYDROcodone/APAP 7.5-325MG [[place] 7.5-325] 1 tab PO Q4-6H PRN PRN Reason: Pain Fluticasone Nasal [place] [Flonase Nasal [place]] 1 spray EA NOSTRIL BID Bacitracin Oint 1 applic TOPICAL TID Albuterol Nebulized [Ventolin Nebulized] 2.5 mg INHALATION RT-BID Acetylcysteine [Mucomyst 10%] 500 mg INHALATION RT-BID Ibuprofen [Motrin Ib] 200 mg PO ONCE PRN PRN Reason: Chest Pain Discontinued Hydrochlorothiazide [Hydrodiuril] 25 mg PO DAILY Cephalexin [Keflex] 500 mg PO TID Discharge Medication List Albuterol Sulfate [Proventil Hfa] 1 puff INHALATION RT-TID PRN 06/01/15 [History ] Allopurinol [Zyloprim] 300 mg PO DAILY 06/01/15 [History] Aspirin 81 mg PO DAILY 06/01/15 [History] Budesonide-Formot 160-4.5 Mcg [Symbicort 160-4.5 Mcg Inhaler] 2 puff INHALATION RT-BID 06/01/15 [History] Carvedilol [Coreg] 3.125 mg PO BID 06/01/15 [History] Finasteride [Proscar] 10 mg PO DAILY 06/01/15 [History] Levothyroxine Sodium [Synthroid] 50 mcg PO DAILY 06/01/15 [History] Omeprazole [PriLOSEC] 20 mg PO AC-BID 10/01/15 [History] Tamsulosin HCl [Flomax] 0.8 mg PO DAILY 06/01/15 [History] Acetylcysteine [Mucomyst 10%] 500 mg INHALATION RT-BID 02/26/18 [History] Albuterol Nebulized [Ventolin Nebulized] 2.5 mg INHALATION RT-BID 02/26/18 [ History] Amitriptyline HCl [Elavil] 50 mg PO HS 02/26/18 [History] Bacitracin Oint 1 applic TOPICAL TID 02/26/18 [History] Fluticasone Nasal [place] [Flonase Nasal [place]] 1 spray EA NOSTRIL BID 02/26/18 [ History] HYDROcodone/APAP 7.5-325MG [[place] 7.5-325] 1 tab PO Q4-6H PRN 02/26/18 [History] Ibuprofen [Motrin Ib] 200 mg PO ONCE PRN 02/26/18 [History] Montelukast [Singulair] 10 mg PO HS 02/26/18 [History] Nitroglycerin Sl Tabs [Nitrostat] 0.4 mg SUBLINGUAL Q5M PRN 02/26/18 [History] Pregabalin [Lyrica] 150 mg PO BID 02/26/18 [History] Sodium Chloride 0.65% Nasal [[place] (Saline)] 2 spray NASAL 5XD 02/26/18 [ History] Tiotropium 18 Mcg/Puff [Spiriva] 1 cap INHALATION RT-DAILY 02/26/18 [History] Amoxic-Pot Clav 500-125 mg [Augmentin 500-125 mg] 1 each PO BID #14 tab [Rx] predniSONE 10 mg PO DAILY #30 tab 02/28/18 [Rx] Follow up Appointment(s)/Referral(s): Jaguar Bynum MD [STAFF PHYSICIAN] - 1 Week [facility] [Primary Care Provider] - 3 Days (spoke to administrative receptionist, will call with appointment time) Activity/Diet/Wound Care/Special Instructions: Please contact CM at discharge regarding medications - may need indigent funds Discharge Disposition: HOME SELF-CARE
[2018-02-28 11:55] LABS: Glucose,Whole Blood 220 mg/dL (75-99)
[2018-02-28] MEDS ORDERED: AMOXIC-POT CLAV 500-125 MG 1 EACH TAB PO SCH (21:00)
[2018-02-28] MEDS ORDERED: TAMSULOSIN 0.4 MG CAP.ER.24H PO SCH (21:00)
== END 2018-02-28 13:22 | disposition home or self-care (01) | DRG 871 ==
LOC: EC 16:35 → 6SEL 19:22 → 5MS5E 02-27 21:19
PROVIDERS: ADMIT Hospitalist; ATTEND Hospitalist
DX: A41.9 Sepsis, unspecified organism (principal); J13 Pneumonia due to Streptococcus pneumoniae; J96.21 Acute and chronic respiratory failure with hypoxia; J96.22 Acute and chronic respiratory failure with hypercapnia; J44.0 Chronic obstructive pulmonary disease with (acute) lower respiratory infection; J44.1 Chronic obstructive pulmonary disease with (acute) exacerbation; J98.11 Atelectasis; J45.40 Moderate persistent asthma, uncomplicated; E03.9 Hypothyroidism, unspecified; E78.5 Hyperlipidemia, unspecified; G47.33 Obstructive sleep apnea (adult) (pediatric); I10 Essential (primary) hypertension; K21.9 Gastro-esophageal reflux disease without esophagitis; Z79.51 Long term (current) use of inhaled steroids; Z79.82 Long term (current) use of aspirin; Z79.899 Other long term (current) drug therapy; Z87.891 Personal history of nicotine dependence; Z99.81 Dependence on supplemental oxygen
CPT/HCPCS: 36415; 36600; 71045; 71046; 80048; 80053; 82550; 82553; 82805; 83036; 83880; 84484; 85025; 85027; 85379; 85610; 85730; 87040; 87070; 87205; 93005; 94640; 94660; 94760; 96361; 96374; 96375; 99291

== ENCOUNTER → 2018-11-30 | Outpatient (CLI) | payer MEDICARE, OTHER ==
--- NOTE | 2018-12-02 09:29 | P.ARTDOP ---
Arterial Doppler LOWER EXTREMITY ARTERIAL DOPPLER: DATE OF SERVICE: 11/30/2018 Reason for study: Bilateral foot ulcers. Doppler waveforms: Multiphasic bilaterally throughout. Pulse volume recording: Toe plethysmography waveforms are normal. Pressure gradients: None. Ankle-brachial indices: Greater than 1 bilaterally. Toe pressures: [] on the right, [] on the left Impression: Normal study.
== END | disposition home or self-care (01) ==
LOC: RADUSWWP 11:57
DX: I73.89 Other specified peripheral vascular diseases (principal)
CPT/HCPCS: 93922

== ENCOUNTER 2023-07-23 07:12 | Emergency (ER) | payer OTHER ==
[2023-07-23] MEDS ORDERED: SODIUM CHLORIDE 0.9% 500 ML 500 ML IV STA (07:46)
--- NOTE | 2023-07-23 07:58 | ED ---
General Adult HPI - General Chief complaint: GI Bleed Stated complaint: Rectal Bleed Time Seen by Provider: 07/23/23 07:18 Source: patient, EMS Mode of arrival: EMS Limitations: no limitations - History of Present Illness Initial comments: Dictation was produced using [employer] dictation software. please excuse any grammatical, word or spelling errors. Chief Complaint: 82-year-old male presents to the ER for GI bleed History of Present Illness: That is an 82-year-old value denies any ischemic regulation use. He presents to the emergency department from home via EMS for 2 weeks of GI bleed. Denies any rectal pain or abdominal pain. Denies any history of abdominal surgery. Denies any symptoms of reflux. States that he's been having mixed bright and dark blood for the last 2 weeks. Patient reports generalized weakness. Patient has no history of GI bleed. The ROS documented in this emergency department record has been reviewed and confirmed by me. Those systems with pertinent positive or negative responses have been documented in the HPI. All other systems are other negative and/or noncontributory. - Related Data Home Medications Medication Instructions Recorded Confirmed Albuterol Sulfate [Proventil Hfa] 1 puff INHALATION RT-TID PRN 06/01/15 02/26/18 Aspirin 81 mg PO DAILY 06/01/15 02/26/18 Budesonide-Formot 160-4.5 Mcg 2 puff INHALATION RT-BID 06/01/15 02/26/18 [Symbicort 160-4.5 Mcg Inhaler] Carvedilol [Coreg] 3.125 mg PO BID 06/01/15 02/26/18 Finasteride [Proscar] 10 mg PO DAILY 06/01/15 02/26/18 Levothyroxine Sodium [Synthroid] 50 mcg PO DAILY 06/01/15 02/26/18 Omeprazole [PriLOSEC] 20 mg PO AC-BID 06/01/15 02/26/18 Tamsulosin HCl [Flomax] 0.8 mg PO DAILY 06/01/15 02/26/18 allopurinoL [Zyloprim] 300 mg PO DAILY 06/01/15 02/26/18 Acetylcysteine [Mucomyst 10%] 500 mg INHALATION RT-BID 02/26/18 02/26/18 Albuterol Nebulized [Ventolin 2.5 mg INHALATION RT-BID 02/26/18 02/26/18 Nebulized] Amitriptyline HCl [Elavil] 50 mg PO HS 02/26/18 02/26/18 Bacitracin Zinc Oint 1 applic TOPICAL TID 02/26/18 02/26/18 Fluticasone Nasal [place] [Flonase 1 spray EA NOSTRIL BID 02/26/18 02/26/18 Nasal [place]] HYDROcodone/APAP 7.5-325MG [Hayes 1 tab PO Q4-6H PRN 02/26/18 02/26/18 7.5-325] Ibuprofen [Motrin Ib] 200 mg PO ONCE PRN 02/26/18 02/26/18 Montelukast [Singulair] 10 mg PO HS 02/26/18 02/26/18 Nitroglycerin Sl Tabs [Nitrostat] 0.4 mg SUBLINGUAL Q5M PRN 02/26/18 02/26/18 Pregabalin [Lyrica] 150 mg PO BID 02/26/18 02/26/18 Sodium Chloride 0.65% Nasal [Deep 2 spray NASAL 5XD 02/26/18 02/26/18 Sea (Saline)] Tiotropium 18 Mcg/Puff [Spiriva] 1 cap INHALATION RT-DAILY 02/26/18 02/26/18 Previous Rx's Medication Instructions Recorded Amoxic-Pot Clav 500-125 mg 1 each PO BID #14 tab 02/28/18 [Augmentin 500-125 mg] predniSONE 10 mg PO DAILY #30 tab 02/28/18 Allergies Allergy/AdvReac Type Severity Reaction Status Date / Time No Known Allergies Allergy Verified 02/26/18 16:53 Review of Systems ROS Statement: Those systems with pertinent positive or pertinent negative responses have been documented in the HPI. ROS Other: All systems not noted in ROS Statement are negative. Past Medical History Past Medical History: Asthma, COPD, GERD/Reflux, Hyperlipidemia, Hypertension, Osteoarthritis (OA), Pneumonia, Prostate Disorder, Sleep Apnea/CPAP/BIPAP, Thyroid Disorder Additional Past Medical History / Comment(s): GOUT; EDEMA IN FEET. History of Any Multi-Drug Resistant Organisms: None Reported Past Surgical History: Heart Catheterization, Hernia Repair Additional Past Surgical History / Comment(s): EXC ZEYAD CATARACTS. HIATAL HERNIA REPAIR. nose sx -02-24-2018 in [facility] Past Anesthesia/Blood Transfusion Reactions: No Reported Reaction Past Psychological History: No Psychological Hx Reported Smoking Status: Former smoker Past Alcohol Use History: Occasional Past Drug Use History: None Reported - Past Family History Sister(s) Family Medical History: Cancer General Exam - General Exam Comments Initial Comments: PHYSICAL EXAM: General Impression: Alert and oriented x3, not in acute distress, blood soiled briefs HEENT: Normocephalic atraumatic, extra-ocular movements intact, pupils equal and reactive to light bilaterally, mucous membranes moist. Cardiovascular: Heart regular rate and rhythm Chest: Able to complete full sentences, no retractions, no tachypnea Abdomen: abdomen soft, non-tender, non-distended, no organomegaly Musculoskeletal: Pulses present and equal in all extremities, no peripheral edema Motor: no focal deficits noted Neurological: CN II-XII grossly intact, no focal motor or sensory deficits noted Skin: Intact with no visualized rashes Psych: Normal affect and mood Rectal: No gross blood Limitations: no limitations Course Vital Signs 07/23/23 07/23/23 07/23/23 07:15 08:18 09:10 Temperature 100.0 F H 99.9 F H 99.6 F Pulse Rate 78 80 77 Respiratory 20 20 18 Rate Blood Pressure 135/74 134/79 135/77 O2 Sat by Pulse 92 L 97 98 Oximetry 07/23/23 10:02 Temperature 98.8 F Pulse Rate 76 Respiratory 19 Rate Blood Pressure 140/74 O2 Sat by Pulse 95 Oximetry Medical Decision Making - Medical Decision Making Was pt. sent in by a medical professional or institution (, PA, ADJUNCT PROFESSOR OF [employer], urgent care, hospital, or skilled nursing...) When possible be specific @ -No Did you speak to anyone other than the patient for history (EMS, parent, family, police, friend...)? What history was obtained from this source @ -No Did you review nursing and triage notes (agree or disagree)? Why? @ -I reviewed and agree with nursing and triage notes Were old charts reviewed (outside hosp., previous admission, EMS record, old EKG, old radiological studies, urgent care reports/EKG's, skilled nursing records)? Report findings @ -No old charts were reviewed Differential Diagnosis (chest pain, altered mental status, abdominal pain women, abdominal pain men, vaginal bleeding, musculoskeletal, weakness, fever, dyspnea, syncope, headache, dizziness, GI bleed, back pain, seizure, CVA, palpatations, mental health)? @ -Differential GI Bleed: Esophageal varices, aortoenteric fistula, Leticia-Mcgrath, gastritis, peptic ulcer disease, diverticulosis, inflammatory bowel disease, hemorrhoids, fissure, colitis, malignancy, Meckels diverticulum, this is not meant to be an all- inclusive list. EKG interpreted by me (3pts min.). @ -My EKG interpretation: Ventricular rate 75, sinus rhythm,. Interval 156, QRS 95, QTC 425. No AL prolongation, no QTC prolongation, no ST or T-wave changes noted. Overall, this EKG is unremarkable X-rays interpreted by me (1pt min.). @ -None done CT interpreted by me (1pt min.). @ -None done U/S interpreted by me (1pt. min.). @ -None done What testing was considered but not performed or refused? (CT, X-rays, U/S, labs)? Why? @ -None What meds were considered but not given or refused? Why? @ -None Did you discuss the management of the patient with other professionals (professionals i.e. , PA, ADJUNCT PROFESSOR [employer], lab, RT, psych nurse, psychotherapist social worker, business administrator, teacher, eeo officer, case advocate)? Give summary @ -No Was smoking cessation discussed for >3mins.? @ -No Was critical care preformed (if so, how long)? @ -No Were there social determinants of health that impacted care today? How? (Homelessness, low income, unemployed, alcoholism, drug addiction, transportation, low edu. Level, literacy, decrease access to med. care, [facility], rehab)? @ -No Was there de-escalation of care discussed even if they declined (Discuss DNR or withdrawal of care, Hospice)? DNR status @ -No What co-morbidities impacted this encounter? (DM, HTN, Smoking, COPD, CAD, Cancer, CVA, ARF, Chemo, Hep., AIDS, mental health diagnosis, sleep apnea, morbid obesity)? @ -None Was patient admitted / discharged? Hospital course, mention meds given and route, prescriptions, significant lab abnormalities, going to OR and other pertinent info. @ -82 Year-old no presents emergency department for GI bleed for 2 weeks. Patient does not have any symptoms of anemia. Vital signs are stable. He has no abdominal pain. Laboratory evaluation is unremarkable. Labs are stable. H emoglobin stable. Occult blood is negative. Patient observed in emergency department for approximately 3 hours. Reevaluated at bedside attendance o'clock a.m. and to be stable medical condition. Patient does not take any anticoagulation medications or have any history of bleeding disorder. Disp osition options were discussed and agreeable to discharge with strict return precaution otherwise she is given outpatient referral to GI specialist. Undiagnosed new problem with uncertain prognosis? @ -No Drug Therapy requiring intensive monitoring for toxicity (Heparin, Nitro, Insulin, Cardizem)? @ -No Were any procedures done? @ -No Diagnosis/symptom? Acute, or Chronic, or Acute on Chronic? Uncomplicated (without systemic symptoms) or Complicated (systemic symptoms)? @ -Gi bleed Side effects of treatment? @ -No Exacerbation, Progression, or Severe Exacerbation? @ -No Poses a threat to life or bodily function? How? (Chest pain, USA, MS, pneumonia, PE, COPD, DKA, ARF, appy, cholecystitis, CVA, Diverticulitis, Homicidal, Suicidal, threat to staff... and all critical care pts) @ -yes - Lab Data Result diagrams: 07/23/23 08:06 07/23/23 08:06 Lab Results 07/23/23 07/23/23 07/23/23 Range/Units 08:05 08:06 08:06 WBC 9.7 (3.8-10.6) k/uL RBC 4.23 L (4.30-5.90) m/uL Hgb 12.4 L (13.0-17.5) gm/dL Hct 36.8 L (39.0-53.0) % MCV 87.1 (80.0-100.0) fL MCH 29.4 (25.0-35.0) pg MCHC 33.8 (31.0-37.0) g/dL RDW 15.8 H (11.5-15.5) % Plt Count 108 L (150-450) k/uL MPV 10.2 Neutrophils % 84 % Lymphocytes % 8 % Monocytes % 7 % Eosinophils % 0 % Basophils % 0 % Neutrophils # 8.1 H (1.3-7.7) k/uL Lymphocytes # 0.7 L (1.0-4.8) k/uL Monocytes # 0.7 (0-1.0) k/uL Eosinophils # 0.0 (0-0.7) k/uL Basophils # 0.0 (0-0.2) k/uL Poikilocytosis Slight PT (10.0-12.5) sec INR (<1.2) APTT (22.0-30.0) sec Sodium 138 (137-145) mmol/L Potassium 4.2 (3.5-5.1) mmol/L Chloride 99 (98-107) mmol/L Carbon Dioxide 27 (22-30) mmol/L Anion Gap 12 mmol/L BUN 36 H (9-20) mg/dL Creatinine 1.13 (0.66-1.25) mg/dL Est GFR (CKD-EPI)AfAm 70 (>60 ml/min/1.73 sqM) Est GFR (CKD-EPI)NonAf 61 (>60 ml/min/1.73 sqM) Glucose 127 H (74-99) mg/dL Plasma Lactic Acid Kota (0.7-2.0) mmol/L Calcium 8.4 (8.4-10.2) mg/dL Magnesium 2.2 (1.6-2.3) mg/dL Total Bilirubin 1.1 (0.2-1.3) mg/dL AST 51 (17-59) U/L ALT 18 (4-49) U/L Alkaline Phosphatase 61 (38-126) U/L Total Protein 6.7 (6.3-8.2) g/dL Albumin 3.5 (3.5-5.0) g/dL Stool Occult Blood (Negative) Blood Type Blood Type Confirm A Positive Blood Type Recheck Bld Type Recheck Status Antibody Screen Spec Expiration Date 07/23/23 07/23/23 07/23/23 Range/Units 08:06 08:06 08:06 WBC (3.8-10.6) k/uL RBC (4.30-5.90) m/uL Hgb (13.0-17.5) gm/dL Hct (39.0-53.0) % MCV (80.0-100.0) fL MCH (25.0-35.0) pg MCHC (31.0-37.0) g/dL RDW (11.5-15.5) % Plt Count (150-450) k/uL MPV Neutrophils % % Lymphocytes % % Monocytes % % Eosinophils % % Basophils % % Neutrophils # (1.3-7.7) k/uL Lymphocytes # (1.0-4.8) k/uL Monocytes # (0-1.0) k/uL Eosinophils # (0-0.7) k/uL Basophils # (0-0.2) k/uL Poikilocytosis PT 9.6 L (10.0-12.5) sec INR 0.8 (<1.2) APTT 28.0 (22.0-30.0) sec Sodium (137-145) mmol/L Potassium (3.5-5.1) mmol/L Chloride (98-107) mmol/L Carbon Dioxide (22-30) mmol/L Anion Gap mmol/L BUN (9-20) mg/dL Creatinine (0.66-1.25) mg/dL Est GFR (CKD-EPI)AfAm (>60 ml/min/1.73 sqM) Est GFR (CKD-EPI)NonAf (>60 ml/min/1.73 sqM) Glucose (74-99) mg/dL Plasma Lactic Acid Kota (0.7-2.0) mmol/L Calcium (8.4-10.2) mg/dL Magnesium (1.6-2.3) mg/dL Total Bilirubin (0.2-1.3) mg/dL AST (17-59) U/L ALT (4-49) U/L Alkaline Phosphatase (38-126) U/L Total Protein (6.3-8.2) g/dL Albumin (3.5-5.0) g/dL Stool Occult Blood Negative (Negative) Blood Type A Positive Blood Type Confirm Blood Type Recheck No Previous Record Bld Type Recheck Status CABO Indicated Antibody Screen NEGATIVE Spec Expiration Date 07/26/2023 - 230507/23/23 Range/Units 08:06 WBC (3.8-10.6) k/uL RBC (4.30-5.90) m/uL Hgb (13.0-17.5) gm/dL Hct (39.0-53.0) % MCV (80.0-100.0) fL MCH (25.0-35.0) pg MCHC (31.0-37.0) g/dL RDW (11.5-15.5) % Plt Count (150-450) k/uL MPV Neutrophils % % Lymphocytes % % Monocytes % % Eosinophils % % Basophils % % Neutrophils # (1.3-7.7) k/uL Lymphocytes # (1.0-4.8) k/uL Monocytes # (0-1.0) k/uL Eosinophils # (0-0.7) k/uL Basophils # (0-0.2) k/uL Poikilocytosis PT (10.0-12.5) sec INR (<1.2) APTT (22.0-30.0) sec Sodium (137-145) mmol/L Potassium (3.5-5.1) mmol/L Chloride (98-107) mmol/L Carbon Dioxide (22-30) mmol/L Anion Gap mmol/L BUN (9-20) mg/dL Creatinine (0.66-1.25) mg/dL Est GFR (CKD-EPI)AfAm (>60 ml/min/1.73 sqM) Est GFR (CKD-EPI)NonAf (>60 ml/min/1.73 sqM) Glucose (74-99) mg/dL Plasma Lactic Acid Kota 1.2 (0.7-2.0) mmol/L Calcium (8.4-10.2) mg/dL Magnesium (1.6-2.3) mg/dL Total Bilirubin (0.2-1.3) mg/dL AST (17-59) U/L ALT (4-49) U/L Alkaline Phosphatase (38-126) U/L Total Protein (6.3-8.2) g/dL Albumin (3.5-5.0) g/dL Stool Occult Blood (Negative) Blood Type Blood Type Confirm Blood Type Recheck Bld Type Recheck Status Antibody Screen Spec Expiration Date Disposition Clinical Impression: GI bleed Disposition: HOME SELF-CARE Condition: Fair Instructions (If sedation given, give patient instructions): Gastrointestinal Bleeding (ED) Is patient prescribed a controlled substance at d/c from ED?: No Referrals: [facility],Clinic [Primary Care Provider] - 1-2 days Time of Disposition: 10:07
[2023-07-23 08:38] LABS: Basophils % (A) 0 %; Eosinophils % (A) 0 %; HCT 36.8 % (39.0-53.0); HGB 12.4 gm/dL (13.0-17.5); Lymphocytes # (A) 0.7 k/uL (1.0-4.8); Lymphocytes % (A) 8 %; MCH 29.4 pg (25.0-35.0); MCHC 33.8 g/dL (31.0-37.0); MCV 87.1 fL (80.0-100.0); Mean Platelet Volume 10.2; Monocytes # (A) 0.7 k/uL (0-1.0); Monocytes % (A) 7 %; Neutrophils # (A) 8.1 k/uL (1.3-7.7); Neutrophils % (A) 84 %; Platelet Count 108 k/uL (150-450); Poikilocytosis Slight; RBC 4.23 m/uL (4.30-5.90); RDW 15.8 % (11.5-15.5); WBC 9.7 k/uL (3.8-10.6)
[2023-07-23 08:41] LABS: INR 0.8 (<1.2); Prothrombin Time 9.6 sec (10.0-12.5)
[2023-07-23 08:51] LABS: ALT 18 U/L (4-49); African American GFR (CKD) 70 (>60 ml/min/1.73 sqM); Anion Gap 12 mmol/L; Blood Urea Nitrogen 36 mg/dL (9-20); Calcium 8.4 mg/dL (8.4-10.2); Carbon Dioxide 27 mmol/L (22-30); Chloride 99 mmol/L (98-107); Glucose 127 mg/dL (74-99); Non-African American GFR(CKD) 61 (>60 ml/min/1.73 sqM); Sodium 138 mmol/L (137-145); Total Bilirubin 1.1 mg/dL (0.2-1.3)
[2023-07-23 08:57] LABS: Magnesium 2.2 mg/dL (1.6-2.3); Potassium 4.2 mmol/L (3.5-5.1)
[2023-07-23 08:58] LABS: AST 51 U/L (17-59); Albumin 3.5 g/dL (3.5-5.0); Alkaline Phosphatase 61 U/L (38-126); Total Protein 6.7 g/dL (6.3-8.2)
[2023-07-23 10:22] VITALS: BP 140/74; PULSE 76; RESP 19; TEMP 98.8
== END 2023-07-23 10:15 | disposition home or self-care (01) ==
LOC: EC 07:12
DX: K92.2 Gastrointestinal hemorrhage, unspecified (principal); J44.89 Other specified chronic obstructive pulmonary disease; K21.9 Gastro-esophageal reflux disease without esophagitis; E78.5 Hyperlipidemia, unspecified; I10 Essential (primary) hypertension; E07.9 Disorder of thyroid, unspecified; M19.90 Unspecified osteoarthritis, unspecified site; M10.9 Gout, unspecified; Z79.82 Long term (current) use of aspirin; Z79.890 Hormone replacement therapy; Z79.51 Long term (current) use of inhaled steroids; Z87.891 Personal history of nicotine dependence
CPT/HCPCS: 36415; 80053; 82272; 83605; 83735; 85025; 85610; 85730; 86850; 86900; 86901; 93005; 96360; 99285

== ENCOUNTER 2023-07-28 13:00 | Inpatient (IN) | payer OTHER, MEDICARE ==
--- NOTE | 2023-07-28 13:06 | ED ---
General Adult HPI - General Source: patient, EMS Mode of arrival: EMS Limitations: no limitations <Iker Nguyen - Last Filed: 07/28/23 13:05> - General Source: RN notes reviewed, old records reviewed <Escobar Sexton - Last Filed: 07/28/23 18:15> - General Stated complaint: ALTERED MENTAL STATE Time Seen by Provider: 07/28/23 13:05 - History of Present Illness Initial comments: 82-year-old male presents emergency from via EMS with chief complaint of weakness, confusion, possible rectal bleeding. Patient family called EMS stating that he had some bleeding and he was less responsive than usual. Patient has had recent ER visit. Patient does not provide significant history as he is very lethargic. (Iker Nguyen) This is an 82-year-old male who is brought to the emergency department by [id number] for weakness and confusion. Patient was in the hospital week ago for rectal bleeding. According to the [id number] who is post get a col onoscopy has yet to get a colonoscopy. According to the [id number] yesterday he was acting fine but today he was completely confused and lethargic and sometimes not responding. Patient denies any pain but he is not giving a very good history aside from that. No further history is available at this time (Escobar Sexton) - Related Data Home Medications Medication Instructions Recorded Confirmed Albuterol Sulfate [Proventil Hfa] 1 puff INHALATION RT-TID PRN 06/01/15 07/28/23 Carvedilol [Coreg] 3.125 mg PO BID-W/MEALS 06/01/15 07/28/23 Finasteride [Proscar] 5 mg PO DAILY 06/01/15 07/28/23 Levothyroxine Sodium [Synthroid] 50 mcg PO DAILY 06/01/15 07/28/23 Omeprazole [PriLOSEC] 20 mg PO AC-BID 06/01/15 07/28/23 Albuterol Nebulized [Ventolin 2.5 mg INHALATION RT-Q4H 02/26/18 07/28/23 Nebulized] Fluticasone Nasal [place] [Flonase 1 spray EA NOSTRIL BID 02/26/18 07/28/23 Nasal [place]] Nitroglycerin Sl Tabs [Nitrostat] 0.4 mg SUBLINGUAL Q5M PRN 02/26/18 07/28/23 Pregabalin [Lyrica] 150 mg PO BID 02/26/18 07/28/23 Sodium Chloride 0.65% Nasal [Deep 2 spray NASAL 5XD PRN 02/26/18 07/28/23 Sea (Saline)] Amitriptyline HCl [Elavil] 75 mg PO HS 07/28/23 07/28/23 Mometasone/Formoterol [Dulera 200 2 puff INHALATION RT-BID 07/28/23 07/28/23 Mcg-5 Mcg Inhaler] hydroCHLOROthiazide [Hydrodiuril] 25 mg PO DAILY 07/28/23 07/28/23 Allergies Allergy/AdvReac Type Severity Reaction Status Date / Time No Known Allergies Allergy Verified 07/28/23 16:56 Review of Systems ROS Other: All systems not noted in ROS Statement are negative. <Iker Nguyen - Last Filed: 07/28/23 13:05> ROS Other: All systems not noted in ROS Statement are negative. <Escobar Sexton - Last Filed: 07/28/23 18:15> ROS Statement: Those systems with pertinent positive or pertinent negative responses have been documented in the HPI. Past Medical History Past Medical History: Asthma, COPD, GERD/Reflux, Hyperlipidemia, Hypertension, Osteoarthritis (OA), Pneumonia, Prostate Disorder, Sleep Apnea/CPAP/BIPAP, Thyroid Disorder Additional Past Medical History / Comment(s): GOUT; EDEMA IN FEET. History of Any Multi-Drug Resistant Organisms: None Reported Past Surgical History: Heart Catheterization, Hernia Repair Additional Past Surgical History / Comment(s): EXC ZEYAD CATARACTS. HIATAL HERNIA REPAIR. nose sx -02-24-[address] [facility] Past Anesthesia/Blood Transfusion Reactions: No Reported Reaction Past Psychological History: No Psychological Hx Reported Smoking Status: Former smoker Past Alcohol Use History: Occasional Past Drug Use History: None Reported - Past Family History Sister(s) Family Medical History: Cancer <Iker Nguyen - Last Filed: 07/28/23 13:05> General Exam General appearance: alert, in no apparent distress <Iker Nguyen - Last Filed: 07/28/23 13:05> <Escobar Sexton - Last Filed: 07/28/23 18:15> - General Exam Comments Initial Comments: Visual Physical Exam Vital signs reviewed General: Well-appearing, nontoxic, no acute distress. Head: Normocephalic, atraumatic Eyes: PERRLA, EOMI ENT: Airway patent Chest: Nonlabored breathing Skin: No visual rash, normal skin tone Neuro: Alert and oriented 3 Musculoskeletal: No gross abnormalities (Iker Nguyen) GENERAL: Patient is well-developed and well-nourished. Patient is nontoxic and well-hydrated and is in no acute distress. ENT: Neck is soft and supple. No significant lymphadenopathy is noted. Oropharynx is clear. Moist mucous membranes. Neck has full range of motion without eliciting any pain. EYES: The sclera were anicteric and conjunctiva were pink and moist. Extraocular movements were intact and pupils were equal round and reactive to light. Eyelids were unremarkable. PULMONARY: Unlabored respirations. Good breath sounds bilaterally. No audible rales rhonchi or wheezing was noted. CARDIOVASCULAR: There is a regular rate and rhythm without any murmurs gallops or rubs. ABDOMEN: Soft and nontender with normal bowel sounds. SKIN: Skin is clear with no lesions or rashes and otherwise unremarkable. NEUROLOGIC: Patient is alert and oriented x3. Patient is already slow to respond and sometimes she falls asleep but when he responds he is accurate Cranial nerves II through XII are grossly intact. Motor and sensory are also intact. Normal speech, volume and content. Symmetrical smile. MUSCULOSKELETAL: Normal extremities with adequate strength and full range of motion. LYMPHATICS: No significant lymphadenopathy is noted PSYCHIATRIC: Normal psychiatric evaluation. (Escobar Sexton) Course Vital Signs 07/28/23 07/28/23 07/28/23 13:13 13:33 15:22 Temperature 989 F H 98.9 F Pulse Rate 92 75 Respiratory 16 16 Rate Blood Pressure 167/94 161/85 O2 Sat by Pulse 92 L 97 Oximetry 07/28/23 17:23 Temperature Pulse Rate 95 Respiratory 16 Rate Blood Pressure 160/94 O2 Sat by Pulse 95 Oximetry Medical Decision Making <Iker Nguyen - Last Filed: 07/28/23 13:05> - Lab Data Result diagrams: 07/28/23 13:19 07/28/23 13:19 <Escobar Sexton - Last Filed: 07/28/23 18:15> - Medical Decision Making I completed the quick note portion of this chart signed Iker Nguyen PA-C (Iker Nguyen) EKG is interpreted by myself. EKG shows a sinus rhythm at 95 bpm NV interval 242 QRS is 89 Q-T intervals 295 QTC is 347. Patient's EKG shows no ST segment elevation or depression. Was pt. sent in by a medical professional or institution (, PA, NURSE ANESTHETIST, urgent care, hospital, or prison...) When possible be specific @ -No Did you speak to anyone other than the patient for history (EMS, parent, family, police, friend...)? What history was obtained from this source @ -Gknxur-ig-wea gave most of the history Did you review nursing and triage notes (agree or disagree)? Why? @ -I reviewed and agree with nursing and triage notes Were old charts reviewed (outside hosp., previous admission, EMS record, old EKG, old radiological studies, urgent care reports/EKG's, prison records)? Report findings @ -I reviewed prior charts in prior lab work Differential Diagnosis (chest pain, altered mental status, abdominal pain women, abdominal pain men, vaginal bleeding, weakness, fever, dyspnea, syncope, heada fox, dizziness, GI bleed, back pain, seizure, CVA, palpatations, mental health, musculoskeletal)? @ -Differential Weakness: Hypoglycemia, shock, sepsis, hyponatremia, anemia, infection, LA, ETOH, adverse medicine reaction, overdose, stroke, this is not meant to be an all-inclusive list. EKG interpreted by me (3pts min.). @ -As above X-rays interpreted by me (1pt min.). @ -Chest x-ray shows no acute abnormality CT interpreted by me (1pt min.). @ -None done U/S interpreted by me (1pt. min.). @ -None done What testing was considered but not performed or refused? (CT, X-rays, U/S, labs)? Why? @ -None What meds were considered but not given or refused? Why? @ -None Did you discuss the management of the patient with other professionals (professionals i.e. , AUSTEN, NURSE ANESTHETIST, lab, RT, psych nurse, social security specialist, document examiner, teacher, chief science officer, case resource manager)? Give summary @ -I spoke with Dr. De León he agreed to admit the patient Was smoking cessation discussed for >3mins.? @ -No Was critical care preformed (if so, how long)? @ -No Were there social determinants of health that impacted care today? How? (Homelessness, low income, unemployed, alcoholism, drug addiction, transportation, low edu. Level, literacy, decrease access to med. care, assisted, rehab)? @ -No Was there de-escalation of care discussed even if they declined (Discuss DNR or withdrawal of care, Hospice)? DNR status @ -No What co-morbidities impacted this encounter? (DM, HTN, Smoking, COPD, CAD, Cancer, CVA, ARF, Chemo, Hep., AIDS, mental health diagnosis, sleep apnea, morbid obesity)? @ -None Was patient admitted / discharged? Hospital course, mention meds given and route, prescriptions, significant lab abnormalities, going to OR and other pertinent info. @ -Work all came back within normal range. Patient did not have any blood per rectum on the last visit and now he has quite a bit of hematuria. Patient did appear better after some fluid however when I asked if he could go home he states his is 81 And she will not be able to help him he does not feel safe going home at this time. I Dr. De León and he agreed to admit the patient Undiagnosed new problem with uncertain prognosis? @ -No Drug Therapy requiring intensive monitoring for toxicity (Heparin, Nitro, Insulin, Cardizem)? @ -No Were any procedures done? @ -No Diagnosis/symptom? @ -Hematuria Acute, or Chronic, or Acute on Chronic? @ -Acute Uncomplicated (without systemic symptoms) or Complicated (systemic symptoms)? @ -Complicated Side effects of treatment? @ -No Exacerbation, Progression, or Severe Exacerbation? @ -No Poses a threat to life or bodily function? How? (Chest pain, USA, LA, pneumonia, PE, COPD, DKA, ARF, appy, cholecystitis, CVA, Diverticulitis, Homicidal, Suicidal, threat to staff... and all critical care pts) @ -No Diagnosis/symptom? @ -Weakness. Acute, or Chronic, or Acute on Chronic? @ -Acute Uncomplicated (without systemic symptoms) or Complicated (systemic symptoms)? @ -Complicated Side effects of treatment? @ -none Exacerbation, Progression, or Severe Exacerbation] @ -no Poses a threat to life or bodily function? @ -no (Escobar Sexton) - Lab Data Lab Results 07/28/23 07/28/23 07/28/23 Range/Units 13:18 13:19 13:19 WBC 6.1 (3.8-10.6) k/uL RBC 4.95 (4.30-5.90) m/uL Hgb 14.1 (13.0-17.5) gm/dL Hct 43.0 (39.0-53.0) % MCV 86.8 (80.0-100.0) fL MCH 28.6 (25.0-35.0) pg MCHC 32.9 (31.0-37.0) g/dL RDW 15.2 (11.5-15.5) % Plt Count 323 D (150-450) k/uL MPV 8.4 Neutrophils % 78 % Lymphocytes % 14 % Monocytes % 5 % Eosinophils % 1 % Basophils % 0 % Neutrophils # 4.7 (1.3-7.7) k/uL Lymphocytes # 0.9 L (1.0-4.8) k/uL Monocytes # 0.3 (0-1.0) k/uL Eosinophils # 0.0 (0-0.7) k/uL Basophils # 0.0 (0-0.2) k/uL Poikilocytosis Slight PT 10.4 (10.0-12.5) sec INR 0.9 (<1.2) APTT 29.7 (22.0-30.0) sec Sodium (137-145) mmol/L Potassium (3.5-5.1) mmol/L Chloride (98-107) mmol/L Carbon Dioxide (22-30) mmol/L Anion Gap mmol/L BUN (9-20) mg/dL Creatinine (0.66-1.25) mg/dL Est GFR (CKD-EPI)AfAm (>60 ml/min/1.73 sqM) Est GFR (CKD-EPI)NonAf (>60 ml/min/1.73 sqM) Glucose (74-99) mg/dL POC Glucose (mg/dL) 111 H (70-110) mg/dL POC Glu Evening Or Night Nurse Supervisor ID Tyrone Joseph Plasma Lactic Acid Kota (0.7-2.0) mmol/L Calcium (8.4-10.2) mg/dL Total Bilirubin (0.2-1.3) mg/dL AST (17-59) U/L ALT (4-49) U/L Alkaline Phosphatase (38-126) U/L Troponin I (0.000-0.034) ng/mL Total Protein (6.3-8.2) g/dL Albumin (3.5-5.0) g/dL Urine Color Urine Appearance (Clear) Urine RBC (0-5) /hpf Urine Red Cell Clumps (None) /hpf Urine WBC (0-5) /hpf Urine Opiates Screen (NotDetected) Ur Oxycodone Screen (NotDetected) Urine Methadone Screen (NotDetected) Ur Propoxyphene Screen (NotDetected) Ur Barbiturates Screen (NotDetected) U Tricyclic Antidepress (NotDetected) Ur Phencyclidine Scrn (NotDetected) Ur Amphetamines Screen (NotDetected) U Methamphetamines Scrn (NotDetected) U Benzodiazepines Scrn (NotDetected) Urine Cocaine Screen (NotDetected) U Marijuana (THC) Screen (NotDetected) Blood Type Blood Type Recheck Bld Type Recheck Status Antibody Screen Spec Expiration Date 07/28/23 07/28/23 07/28/23 Range/Units 13:19 13:19 13:19 WBC (3.8-10.6) k/uL RBC (4.30-5.90) m/uL Hgb (13.0-17.5) gm/dL Hct (39.0-53.0) % MCV (80.0-100.0) fL MCH (25.0-35.0) pg MCHC (31.0-37.0) g/dL RDW (11.5-15.5) % Plt Count (150-450) k/uL MPV Neutrophils % % Lymphocytes % % Monocytes % % Eosinophils % % Basophils % % Neutrophils # (1.3-7.7) k/uL Lymphocytes # (1.0-4.8) k/uL Monocytes # (0-1.0) k/uL Eosinophils # (0-0.7) k/uL Basophils # (0-0.2) k/uL Poikilocytosis PT (10.0-12.5) sec INR (<1.2) APTT (22.0-30.0) sec Sodium 142 (137-145) mmol/L Potassium 3.1 L (3.5-5.1) mmol/L Chloride 97 L (98-107) mmol/L Carbon Dioxide 33 H (22-30) mmol/L Anion Gap 12 mmol/L BUN 23 H (9-20) mg/dL Creatinine 0.79 (0.66-1.25) mg/dL Est GFR (CKD-EPI)AfAm >90 (>60 ml/min/1.73 sqM) Est GFR (CKD-EPI)NonAf 85 (>60 ml/min/1.73 sqM) Glucose 114 H (74-99) mg/dL POC Glucose (mg/dL) (70-110) mg/dL POC Glu Evening Or Night Nurse Supervisor ID Plasma Lactic Acid Kota (0.7-2.0) mmol/L Calcium 9.0 (8.4-10.2) mg/dL Total Bilirubin 1.0 (0.2-1.3) mg/dL AST 35 (17-59) U/L ALT 23 (4-49) U/L Alkaline Phosphatase 71 (38-126) U/L Troponin I 0.013 (0.000-0.034) ng/mL Total Protein 7.1 (6.3-8.2) g/dL Albumin 3.7 (3.5-5.0) g/dL Urine Color Urine Appearance (Clear) Urine RBC (0-5) /hpf Urine Red Cell Clumps (None) /hpf Urine WBC (0-5) /hpf Urine Opiates Screen (NotDetected) Ur Oxycodone Screen (NotDetected) Urine Methadone Screen (NotDetected) Ur Propoxyphene Screen (NotDetected) Ur Barbiturates Screen (NotDetected) U Tricyclic Antidepress (NotDetected) Ur Phencyclidine Scrn (NotDetected) Ur Amphetamines Screen (NotDetected) U Methamphetamines Scrn (NotDetected) U Benzodiazepines Scrn (NotDetected) Urine Cocaine Screen (NotDetected) U Marijuana (THC) Screen (NotDetected) Blood Type A Positive Blood Type Recheck A Pos Bld Type Recheck Status No Antibody Screen NEGATIVE Spec Expiration Date 07/31/2023 - 231807/28/23 07/28/23 Range/Units 13:41 14:42 WBC (3.8-10.6) k/uL RBC (4.30-5.90) m/uL Hgb (13.0-17.5) gm/dL Hct (39.0-53.0) % MCV (80.0-100.0) fL MCH (25.0-35.0) pg MCHC (31.0-37.0) g/dL RDW (11.5-15.5) % Plt Count (150-450) k/uL MPV Neutrophils % % Lymphocytes % % Monocytes % % Eosinophils % % Basophils % % Neutrophils # (1.3-7.7) k/uL Lymphocytes # (1.0-4.8) k/uL Monocytes # (0-1.0) k/uL Eosinophils # (0-0.7) k/uL Basophils # (0-0.2) k/uL Poikilocytosis PT (10.0-12.5) sec INR (<1.2) APTT (22.0-30.0) sec Sodium (137-145) mmol/L Potassium (3.5-5.1) mmol/L Chloride (98-107) mmol/L Carbon Dioxide (22-30) mmol/L Anion Gap mmol/L BUN (9-20) mg/dL Creatinine (0.66-1.25) mg/dL Est GFR (CKD-EPI)AfAm (>60 ml/min/1.73 sqM) Est GFR (CKD-EPI)NonAf (>60 ml/min/1.73 sqM) Glucose (74-99) mg/dL POC Glucose (mg/dL) (70-110) mg/dL POC Glu Evening Or Night Nurse Supervisor ID Plasma Lactic Acid Kota 1.5 (0.7-2.0) mmol/L Calcium (8.4-10.2) mg/dL Total Bilirubin (0.2-1.3) mg/dL AST (17-59) U/L ALT (4-49) U/L Alkaline Phosphatase (38-126) U/L Troponin I (0.000-0.034) ng/mL Total Protein (6.3-8.2) g/dL Albumin (3.5-5.0) g/dL Urine Color Red Urine Appearance Bloody (Clear) Urine RBC >182 H (0-5) /hpf Urine Red Cell Clumps Moderate H (None) /hpf Urine WBC 5 (0-5) /hpf Urine Opiates Screen Not Detected (NotDetected) Ur Oxycodone Screen Not Detected (NotDetected) Urine Methadone Screen Not Detected (NotDetected) Ur Propoxyphene Screen Not Detected (NotDetected) Ur Barbiturates Screen Not Detected (NotDetected) U Tricyclic Antidepress Detected H (NotDetected) Ur Phencyclidine Scrn Not Detected (NotDetected) Ur Amphetamines Screen Not Detected (NotDetected) U Methamphetamines Scrn Not Detected (NotDetected) U Benzodiazepines Scrn Not Detected (NotDetected) Urine Cocaine Screen Not Detected (NotDetected) U Marijuana (THC) Screen Not Detected (NotDetected) Blood Type Blood Type Recheck Bld Type Recheck Status Antibody Screen Spec Expiration Date Disposition <Iker Nguyen - Last Filed: 07/28/23 13:05> Time of Disposition: 18:15 <Escobar Sexton - Last Filed: 07/28/23 18:15> Clinical Impression: Hematuria, Weakness, Hypokalemia Disposition: ADMITTED IP TO THIS [facility] Referrals: Corinne Mckinnon PT [REFERRING] - 1-2 days
[2023-07-28 13:20] LABS: Glucose,Whole Blood 111 mg/dL (70-110)
[2023-07-28] MEDS ORDERED: SODIUM CHLORIDE 0.9% 1,000 ML IV ONE ×2 (13:31→19:48)
[2023-07-28 13:42] LABS: Basophils % (A) 0 %; Eosinophils % (A) 1 %; HGB 14.1 gm/dL (13.0-17.5); Lymphocytes # (A) 0.9 k/uL (1.0-4.8); Lymphocytes % (A) 14 %; MCH 28.6 pg (25.0-35.0); MCHC 32.9 g/dL (31.0-37.0); MCV 86.8 fL (80.0-100.0); Mean Platelet Volume 8.4; Monocytes # (A) 0.3 k/uL (0-1.0); Monocytes % (A) 5 %; Neutrophils # (A) 4.7 k/uL (1.3-7.7); Neutrophils % (A) 78 %; Poikilocytosis Slight; RBC 4.95 m/uL (4.30-5.90); RDW 15.2 % (11.5-15.5); WBC 6.1 k/uL (3.8-10.6)
[2023-07-28 13:59] LABS: ALT 23 U/L (4-49); AST 35 U/L (17-59); African American GFR (CKD) >90 (>60 ml/min/1.73 sqM); Albumin 3.7 g/dL (3.5-5.0); Alkaline Phosphatase 71 U/L (38-126); Anion Gap 12 mmol/L; Blood Urea Nitrogen 23 mg/dL (9-20); Carbon Dioxide 33 mmol/L (22-30); Chloride 97 mmol/L (98-107); Glucose 114 mg/dL (74-99); Non-African American GFR(CKD) 85 (>60 ml/min/1.73 sqM); Potassium 3.1 mmol/L (3.5-5.1); Sodium 142 mmol/L (137-145); Total Protein 7.1 g/dL (6.3-8.2)
[2023-07-28 14:02] LABS: Platelet Count 323 k/uL (150-450)
[2023-07-28 14:14] LABS: INR 0.9 (<1.2); Partial Thromboplastin Time 29.7 sec (22.0-30.0); Prothrombin Time 10.4 sec (10.0-12.5)
--- NOTE | 2023-07-28 14:32 | XR ---
EXAMINATION TYPE: XR chest 2V DATE OF EXAM: 07/28/2023 2:11 PM CLINICAL INDICATION:Male, 82 years old with history of altered mental status; [facility] COMPARISON: Chest radiographs from 02/27/2018 TECHNIQUE: XR chest 2V Frontal and lateral views of the chest. FINDINGS: Lungs/Pleura: Bibasilar atelectasis. No evidence for pneumothorax, pleural effusion or focal consolid ation. Pulmonary vascularity: Unremarkable. Heart/mediastinum: Cardiomediastinal silhouette is unremarkable. Musculoskeletal: No acute osseous pathology. IMPRESSION: Basilar atelectasis versus airspace disease. COPD changes.
[2023-07-28 15:09] LABS: Appearance,Urine Bloody (Clear); RBC Clumps, Urine Moderate /hpf; RBC,Urine >182 /hpf (0-5); WBC,Urine 5 /hpf (0-5)
[2023-07-28 15:10] LABS: Color,Urine Red
[2023-07-28 15:11] LABS: Amphetamine Screen,Urine Not Detected (NotDetected); Barbiturate Screen,Urine Not Detected (NotDetected); Benzodiazepines Screen,Urine Not Detected (NotDetected); Cocaine Screen,Urine Not Detected (NotDetected); Methadone Screen, Urine Not Detected (NotDetected); Opiate Screen,Urine Not Detected (NotDetected); Oxycodone Screen, Urine Not Detected (NotDetected); Phencyclidine Screen,Urine Not Detected (NotDetected); Tricyclic Antidepressant,Urine Detected (NotDetected); Urn Cannabinoid Scrn Not Detected (NotDetected)
--- NOTE | 2023-07-28 16:25 | CT ---
EXAMINATION TYPE: CT abdomen pelvis w con DATE OF EXAM: 07/28/2023 COMPARISON: None. HISTORY: blood in urine and abnormal stool CT DLP: 716.8 mGycm, Automated Exposure Control for Dose Reduction was Utilized. CONTRAST: CT scan of the abdomen and pelvis is performed with oral and with IV Contrast, patient injected with 100ml mL of Isovue 300. FINDINGS: LUNG BASES: Areas of increased opacity in the bilateral lung bases could reflect edema and/or acute i nfiltrates slightly worse on the right. LIVER/GB: Multiple Cholecystectomy clips are present. Visualized liver is heterogeneously hypodense s uggesting diffuse fatty infiltrative hepatocellular disease PANCREAS: Mild to moderate generalized atrophy. SPLEEN: Splenomegaly at 15.1 cm long axis coronal image 78. ADRENALS: No significant abnormality is seen. KIDNEYS: There are small thin-walled cysts in the left kidney. No renal calculi or hydronephrosis see n bilaterally. No suspicious intraluminal mass or calculus in the bladder. BOWEL: Sigmoid colonic diverticulosis. No abnormal small or large bowel dilatation. PROSTATE/SEMINAL VESICLES: Mildly enlarged prostate gland bulging on bladder base with posterior calc ifications. LYMPH NODES: No greater than 1cm abdominal or pelvic lymph nodes are appreciated. OSSEOUS STRUCTURES: Bilateral pars defect L5 level with grade 1 anterolisthesis L5 on S1. Severe disc space narrowing at L5-S1 level. Moderate to severe disc space narrowing at L3-L4 level with endplate sclerosis. OTHER: Moderate calcified plaque of the aorta extends into branch vessels. IMPRESSION: 1. Distal colonic diverticulosis without CT evidence for acute diverticulitis. Source of hematuria no t distinctly identified. Advise urology referral if symptoms persist. 2. Multifocal opacities and organizing consolidations in the lung bases greater on the right could re flect areas of developing acute infiltrate in appropriate cortical setting, correlate clinically. 3. Splenomegaly is seen which may warrant further nonemergent clinical workup.
[2023-07-28] MEDS ORDERED: POTASSIUM CHLORIDE ER 20 MEQ TAB.ER PO STA (17:27)
--- NOTE | 2023-07-28 21:41 | CT ---
EXAMINATION TYPE: CT brain wo con CT DLP: 1153.4 mGycm, Automated exposure control for dose reduction was used. DATE OF EXAM: 07/28/2023 9:34 PM COMPARISON: None. CLINICAL INDICATION:Male, 82 years old with history of confusion, new onset today, AMS TECHNIQUE: Brain: Axial CT images of the brain were obtained with coronal and sagittal reformats created and rev iewed. Contrast used: None. Oral contrast used: None. FINDINGS: Brain: Extra-axial spaces: No abnormal extra-axial fluid collections. Ventricular system: Dilatation in proportion to cerebral atrophy. Cerebral parenchyma: Cerebral atrophy. No acute intraparenchymal hemorrhage or mass effect. The moraes -white junction is well differentiated. Scattered hypoattenuating areas are seen within the white mat ter. Cerebellum: Unremarkable. Mass effect: No evidence of midline shift. Intracranial vasculature: Atherosclerotic calcifications of the intracranial vessels. Soft tissues: Normal. Calvarium/osseous structures: No depressed skull fracture. Paranasal sinuses and mastoid air cells: Mild scattered paranasal sinus disease. Visualized orbits: Orbital contents are intact. IMPRESSION: 1. No acute intracranial process. 2. Nonspecific white matter changes, likely secondary to chronic small vessel ischemic disease.
[2023-07-29] MEDS ORDERED: IPRATROPIUM-ALBUTEROL 3 ML NEB INHALATION PRN (00:13)
[2023-07-29] MEDS ORDERED: ACETAMINOPHEN TAB 325 MG TAB PO PRN (00:14)
[2023-07-29] MEDS ORDERED: ONDANSETRON 4 MG/2 ML VIAL IVP PRN (00:14)
[2023-07-29] MEDS ORDERED: NALOXONE 0.4 MG/ML 1 ML VIAL IV PRN (00:14)
[2023-07-29] MEDS ORDERED: cloNIDine HCL 0.2 MG TAB PO PRN (00:16)
[2023-07-29] MEDS: carvediloL 3.125 MG TAB PO SCH ×3 (00:37→18:34)
[2023-07-29] MEDS: AZITHROMYCIN 500 MG TAB PO SCH ×2 (00:37→10:01)
--- NOTE | 2023-07-29 01:01 | P.HPIM ---
History of Present Illness H&P Date: 07/28/23 Chief Complaint: confusion, rectal bleeding 82-year-old male with hypertension, hypothyroid COPD on home oxygen Patient was brought to the hospital by EMS for increased confusion and rectal bleeding. Patient himself unable to provide any meaningful history he answers questions with yes and no however unreliable is awake and oriented to place and time and person. Currently his daughter at bedside who does not see him frequently and doesn't know much about his medical history last time she saw him was in May She is recognizing significant weight loss over the past 2-3 months. She also reports that her dad has been coughing for couple days but otherwise she doesn't know much about him. Chart review indicated that he's been having some hemoptysis, hematuria, and rectal bleeding, of unknown duration he was supposed to get colonoscopy in the next coming days other than that no available history Patient himself has no complaints except for rectal bleeding however denies any chest pain trouble breathing abdominal pain denies any falls denies being on any blood thinners or NSAIDs Workup in the ED CT scan of the brain showed no acute pathology Computed tomography scan of the abdomen showed diverticulosis without diverticulitis also showed some splenomegaly Chest x-ray showed some pulmonary infiltrates Blood work overall unremarkable except for hypokalemia and dehydration Lactic acid was 1.5 troponins negative Patient quit smoking and heavy drinking many many years ago Review of systems Unreliable due to patient confusion on exam Constitutional: No acute distress, cooperative, well kept, cachectic Eyes: Anicteric sclerae, moist conjunctiva, Pupils equal round reactive to light ENMT: NC/AT Oropharynx clear, no erythema, or exudates Neck: Supple, no masses, or JVD No carotid bruits No thyromegaly Lungs: Clear to auscultation Clear to percussion Normal respiratory effort, no accessory muscle use Cardiovascular: Heart regular in rate and rhythm, No murmurs, gallops, or rubs No peripheral edema Abdominal: Soft Diffuse tenderness to deep palpation with voluntary guarding over the suprapubic region no rebound no rigidity Abdomen moving with respiration Normoactive bowel sounds No palpable mass Extremities: No digital cyanosis No clubbing Pedal pulses intact and symmetrical Radial pulses intact and symmetrical No calf tenderness Psychiatric: Alert and oriented to person, place and time Neuro patient could not follow commands to do proper neuro exam. When tried to examine his upper extremities or lower extremities and exposed the sheets he started shivering and shaking from feeling cold requested to be covered he is able to move his bilateral upper extremities purposefully other than that he wasn't able to participate in your exam Lymphatics: no palpable cervical or supraclavicular lymph nodes Past Medical History Past Medical History: Asthma, COPD, GERD/Reflux, Hyperlipidemia, Hypertension, Osteoarthritis (OA), Pneumonia, Prostate Disorder, Sleep Apnea/CPAP/BIPAP, Thyroid Disorder Additional Past Medical History / Comment(s): GOUT; EDEMA IN FEET. History of Any Multi-Drug Resistant Organisms: None Reported Past Surgical History: Heart Catheterization, Hernia Repair Additional Past Surgical History / Comment(s): EXC ZEYAD CATARACTS. HIATAL HERNIA REPAIR. nose s02-24-2018 in [facility] Past Anesthesia/Blood Transfusion Reactions: No Reported Reaction Past Psychological History: No Psychological Hx Reported Smoking Status: Former smoker Past Alcohol Use History: Occasional Past Drug Use History: None Reported - Past Family History Sister(s) Family Medical History: Cancer Medications and Allergies Home Medications Medication Instructions Recorded Confirmed Type Albuterol Sulfate [Proventil Hfa] 1 puff INHALATION RT-TID PRN 06/01/15 07/28/23 History Carvedilol [Coreg] 3.125 mg PO BID-W/MEALS 06/01/15 07/28/23 History Finasteride [Proscar] 5 mg PO DAILY 06/01/15 07/28/23 History Levothyroxine Sodium [Synthroid] 50 mcg PO DAILY 06/01/15 07/28/23 History Omeprazole [PriLOSEC] 20 mg PO AC-BID 06/01/15 07/28/23 History Albuterol Nebulized [Ventolin 2.5 mg INHALATION RT-Q4H 02/26/18 07/28/23 History Nebulized] Fluticasone Nasal [place] [Flonase 1 spray EA NOSTRIL BID 02/26/18 07/28/23 History Nasal [place]] Nitroglycerin Sl Tabs [Nitrostat] 0.4 mg SUBLINGUAL Q5M PRN 02/26/18 07/28/23 History Pregabalin [Lyrica] 150 mg PO BID 02/26/18 07/28/23 History Sodium Chloride 0.65% Nasal [Deep 2 spray NASAL 5XD PRN 02/26/18 07/28/23 History Sea (Saline)] Amitriptyline HCl [Elavil] 75 mg PO HS 07/28/23 07/28/23 History Mometasone/Formoterol [Dulera 200 2 puff INHALATION RT-BID 07/28/23 07/28/23 History Mcg-5 Mcg Inhaler] hydroCHLOROthiazide [Hydrodiuril] 25 mg PO DAILY 07/28/23 07/28/23 History Allergies Allergy/AdvReac Type Severity Reaction Status Date / Time No Known Allergies Allergy Verified 07/28/23 16:56 Physical Exam Vitals: Vital Signs Temp Pulse Resp BP Pulse Ox 07/28/23 17:23 95 16 160/94 95 07/28/23 15:22 75 16 161/85 97 07/28/23 13:33 98.9 F 07/28/23 13:13 989 F H 92 16 167/94 92 L Intake and Output 07/28/23 07/28/23 07/28/23 06:59 14:59 22:59 Other: Weight 54.431 kg Results CBC & Chem 7: 07/28/23 13:19 07/28/23 13:19 Labs: Abnormal Lab Results - Last 24 Hours (Table) 07/28/23 07/28/23 07/28/23 Range/Units 13:18 13:19 13:19 Lymphocytes # 0.9 L (1.0-4.8) k/uL Potassium 3.1 L (3.5-5.1) mmol/L Chloride 97 L (98-107) mmol/L Carbon Dioxide 33 H (22-30) mmol/L BUN 23 H (9-20) mg/dL Glucose 114 H (74-99) mg/dL POC Glucose (mg/dL) 111 H (70-110) mg/dL Urine RBC (0-5) /hpf Urine Red Cell Clumps (None) /hpf U Tricyclic Antidepress (NotDetected) 07/28/23 Range/Units 14:42 Lymphocytes # (1.0-4.8) k/uL Potassium (3.5-5.1) mmol/L Chloride (98-107) mmol/L Carbon Dioxide (22-30) mmol/L BUN (9-20) mg/dL Glucose (74-99) mg/dL POC Glucose (mg/dL) (70-110) mg/dL Urine RBC >182 H (0-5) /hpf Urine Red Cell Clumps Moderate H (None) /hpf U Tricyclic Antidepress Detected H (NotDetected) Assessment and Plan Assessment: 82-year-old male COPD on home oxygen, hypertension Patient was brought in for increased confusion and generalized weakness and rectal bleeding I discussed the case with the ED doctor and accepted the admission for rectal bleeding and dehydration with anticipated length of stay more than 2 midnights Acute metabolic encephalopathy rule out underlying infectious process Due to hemoptysis and finding of pulmonary infiltrates on chest x-ray with report of coughing with consider pneumonia Follow-up cultures Start Rocephin 2 g IV piggyback daily Start azithromycin 500 mg by mouth daily Check urine Legionella antigen Check RSV, influenza, Covid White count 6.[address] of the brain no acute intracranial pathology Tylenol for fever Gentle IV fluid hydration 75 mL per hour Normal saline Zofran 4 mg when necessary IV push every 8 hours for nausea vomiting Hematuria Check postvoid residual bladder scanning as needed Urology consult Consider Martinez catheter if we detect retention of urine more than [address] of the abdomen revealed diverticulosis without diverticulitis, and splenomegaly GI consultation Monitor hemoglobin closely Current hemoglobin 14 Denies any blood thinners or NSAIDs Platelet count is unremarkable PT/INR unremarkable Hypokalemia Potassium 3.1 replace orally follow-up levels Chronic conditions Hypertension resume Coreg COPD compensated on home oxygen Continue with home inhalers DuoNeb's as needed PT evaluation Fall precautions Full code DVT prophylaxis mechanical secondary to GI bleeding
[2023-07-29 01:29] LABS: HCT 34.6 % (39.0-53.0); HGB 11.6 gm/dL (13.0-17.5); MCH 29.3 pg (25.0-35.0); MCHC 33.6 g/dL (31.0-37.0); MCV 87.1 fL (80.0-100.0); Mean Platelet Volume 8.4; Platelet Count 266 k/uL (150-450); Poikilocytosis Slight; RBC 3.97 m/uL (4.30-5.90); RDW 15.1 % (11.5-15.5); WBC 6.7 k/uL (3.8-10.6)
[2023-07-29] MEDS: SYMBICORT 160-4.5 MCG INHALER INHALATION SCH ×3 (03:47→21:02)
[2023-07-29 04:46] LABS: African American GFR (CKD) >90 (>60 ml/min/1.73 sqM); Anion Gap 12 mmol/L; Blood Urea Nitrogen 20 mg/dL (9-20); Calcium 8.6 mg/dL (8.4-10.2); Carbon Dioxide 28 mmol/L (22-30); Chloride 97 mmol/L (98-107); Glucose 80 mg/dL (74-99); Non-African American GFR(CKD) 85 (>60 ml/min/1.73 sqM); Potassium 3.3 mmol/L (3.5-5.1); Sodium 137 mmol/L (137-145)
[2023-07-29] MEDS ORDERED: Potassium Replacement Protocol 1 EACH MISC MISCELLANE PRN (05:08)
[2023-07-29] MEDS: PANTOPRAZOLE 40 MG TABLET PO SCH (06:12)
[2023-07-29] MEDS: LEVOTHYROXINE 50 MCG TAB PO SCH (06:12)
[2023-07-29] MEDS: PREGABALIN 75 MG CAP PO SCH ×2 (10:01→21:33)
[2023-07-29] MEDS: POTASSIUM CHLORIDE ER 20 MEQ TAB.ER PO SCH ×2 (10:01→18:35)
[2023-07-29] MEDS: FINASTERIDE 5 MG TAB PO SCH (10:01)
[2023-07-29 11:33] VITALS: BMI 16.2
[2023-07-29] MEDS: ALBUTEROL HFA INHALER INHALATION PRN (12:45)
--- NOTE | 2023-07-29 13:20 | P.CONS ---
History of Present Illness - Reason for Consult Consult date: 07/29/23 GI bleed Requesting physician: Fercho Paniagua - Chief Complaint Covid infection, generalized weakness - History of Present Illness This is a cousin 82-year-old male who is being seen in the ICU as overflow medical patient who was admitted for COVID-19 infection, confusion and generalized weakness. He has a past medical history including hypertension, hypothyroid, and COPD on home oxygen. Patient's daughter is at the bedside who is trying to provide some history and states that patient's said that he was having hematuria as well as possibly some of rectal bleeding. Last EGD colonoscopy done in June [address] Dasilva for history of GERD. Findings of antral gastritis, esophagitis, small hiatal hernia and colonoscopy significant for colon polyp and diverticulosis as well as his external hemorrhoids. Patient is denying any current rectal bleeding. He denies any abdominal pain, nausea or vomiting. Patient is not on any anticoagulation. He had a CT of the abdomen and pelvis with contrast from that reported distal colonic diverticulosis without CT evidence for acute diverticulitis. Labs WBC 6.7 hemoglobin 11.6 hematocrit 34 platelet count 266,000 INR 0.9 thank you sodium 137 potassium 3.3 nightly 20 creatinine 0.7 Review of Systems REVIEW OF SYSTEMS: CARDIOPULMONARY: No chest pain or shortness of breath. Gastrointestinal: No abdominal pain. No nausea or vomiting. No hematemesis, coffee-ground emesis. Reported rectal bleeding per patient's daughter. GENITOURINARY: Hematuria per patient's daughter and patient. MUSCULOSKELETAL: Reports normal range of motion., Joint pain. SKIN: No rashes. No jaundice. ENDOCRINE: No chills, fevers. No excessive weight gain or loss. No polydipsia or polyuria. PSYCHIATRIC: Unremarkable. NEUROLOGY: No change in mental status. Denies dizziness, headache. ENT: Vision unremarkable. CONSTITUTIONAL: No recent weight loss. No fever, chills, night sweats. Past Medical History Past Medical History: Asthma, COPD, GERD/Reflux, Hyperlipidemia, Hypertension, Osteoarthritis (OA), Pneumonia, Prostate Disorder, Sleep Apnea/CPAP/BIPAP, Thyroid Disorder Additional Past Medical History / Comment(s): GOUT; EDEMA IN FEET. History of Any Multi-Drug Resistant Organisms: None Reported Past Surgical History: Heart Catheterization, Hernia Repair Additional Past Surgical History / Comment(s): EXC ZEYAD CATARACTS. HIATAL HERNIA REPAIR. nose sx -02-24-2018 in [facility] Past Anesthesia/Blood Transfusion Reactions: No Reported Reaction Past Psychological History: No Psychological Hx Reported Smoking Status: Former smoker Past Alcohol Use History: Occasional Past Drug Use History: None Reported - Past Family History Sister(s) Family Medical History: Cancer Medications and Allergies Home Medications Medication Instructions Recorded Confirmed Type Albuterol Sulfate [Proventil Hfa] 1 puff INHALATION RT-TID PRN 06/01/15 07/28/23 History Carvedilol [Coreg] 3.125 mg PO BID-W/MEALS 06/01/15 07/28/23 History Finasteride [Proscar] 5 mg PO DAILY 06/01/15 07/28/23 History Levothyroxine Sodium [Synthroid] 50 mcg PO DAILY 06/01/15 07/28/23 History Omeprazole [PriLOSEC] 20 mg PO AC-BID 06/01/15 07/28/23 History Albuterol Nebulized [Ventolin 2.5 mg INHALATION RT-Q4H 02/26/18 07/28/23 History Nebulized] Fluticasone Nasal [place] [Flonase 1 spray EA NOSTRIL BID 02/26/18 07/28/23 His tory Nasal [place]] Nitroglycerin Sl Tabs [Nitrostat] 0.4 mg SUBLINGUAL Q5M PRN 02/26/18 07/28/23 History Pregabalin [Lyrica] 150 mg PO BID 02/26/18 07/28/23 History Sodium Chloride 0.65% Nasal [Deep 2 spray NASAL 5XD PRN 02/26/18 07/28/23 History Sea (Saline)] Amitriptyline HCl [Elavil] 75 mg PO HS 07/28/23 07/28/23 History Mometasone/Formoterol [Dulera 200 2 puff INHALATION RT-BID 07/28/23 07/28/23 History Mcg-5 Mcg Inhaler] hydroCHLOROthiazide [Hydrodiuril] 25 mg PO DAILY 07/28/23 07/28/23 History Allergies Allergy/AdvReac Type Severity Reaction Status Date / Time No Known Allergies Allergy Verified 07/28/23 16:56 Physical Exam Vitals: Vital Signs Temp Pulse Resp BP BP Pulse Ox 07/29/23 02:00 97.5 F L 15 167/87 96 07/28/23 22:00 98.1 F 16 184/70 94 L 07/28/23 20:00 95 18 147/94 95 07/28/23 17:23 95 16 160/94 95 07/28/23 15:22 75 16 161/85 97 07/28/23 13:33 98.9 F 07/28/23 13:13 989 F H 92 16 167/94 92 L Intake and Output 07/28/23 07/29/23 07/29/23 22:59 06:59 14:59 Output Total 0 Balance 0 Output: Urine 0 Other: Voiding Method Urinal Diaper Weight 54.431 kg General appearance: The patient is alert, oriented, appears in no acute distress. Has nasal cannula, 2 L. HET: Head is normocephalic and atraumatic. Conjunctiva pink. Sclera anicteric. Neck: Supple without lymphadenopathy. Trachea midline. Heart: Regular. Lungs: Equal expansion, normal respiratory effort. Abdomen: Soft, mild mid abdominal tenderness, nondistended. No guarding or rigidity. Skin: No rashes. No jaundice. Extremities: Normal skin color and turgor. No pedal edema. Neurological: No focal deficits. Alert and oriented x3. Results CBC & Chem 7: 07/29/23 01:02 07/29/23 03:35 Labs: Abnormal Lab Results - Last 24 Hours (Table) 07/28/23 07/28/23 07/28/23 Range/Units 13:18 13:19 13:19 RBC (4.30-5.90) m/uL Hgb (13.0-17.5) gm/dL Hct (39.0-53.0) % Lymphocytes # 0.9 L (1.0-4.8) k/uL Potassium 3.1 L (3.5-5.1) mmol/L Chloride 97 L (98-107) mmol/L Carbon Dioxide 33 H (22-30) mmol/L BUN 23 H (9-20) mg/dL Glucose 114 H (74-99) mg/dL POC Glucose (mg/dL) 111 H (70-110) mg/dL Urine RBC (0-5) /hpf Urine Red Cell Clumps (None) /hpf U Tricyclic Antidepress (NotDetected) SARS-CoV-2 (PCR) (Not Detectd) 07/28/23 07/29/23 07/29/23 Range/Units 14:42 00:59 01:02 RBC 3.97 L (4.30-5.90) m/uL Hgb 11.6 L (13.0-17.5) gm/dL Hct 34.6 L (39.0-53.0) % Lymphocytes # (1.0-4.8) k/uL Potassium (3.5-5.1) mmol/L Chloride (98-107) mmol/L Carbon Dioxide (22-30) mmol/L BUN (9-20) mg/dL Glucose (74-99) mg/dL POC Glucose (mg/dL) (70-110) mg/dL Urine RBC >182 H (0-5) /hpf Urine Red Cell Clumps Moderate H (None) /hpf U Tricyclic Antidepress Detected H (NotDetected) SARS-CoV-2 (PCR) Detected A (Not Detectd) 07/29/23 Range/Units 03:35 RBC (4.30-5.90) m/uL Hgb (13.0-17.5) gm/dL Hct (39.0-53.0) % Lymphocytes # (1.0-4.8) k/uL Potassium 3.3 L (3.5-5.1) mmol/L Chloride 97 L (98-107) mmol/L Carbon Dioxide (22-30) mmol/L BUN (9-20) mg/dL Glucose (74-99) mg/dL POC Glucose (mg/dL) (70-110) mg/dL Urine RBC (0-5) /hpf Urine Red Cell Clumps (None) /hpf U Tricyclic Antidepress (NotDetected) SARS-CoV-2 (PCR) (Not Detectd) Comments: CT abdomen and pelvis with contrast reported distal colonic diverticulosis without CT evidence for acute diverticulitis. Source of hematuria not dist inctly identified. Advised urology referral if symptoms persist. Multifocal P cities and organizing consolidations in the lung bases greater on the right could reflect areas of developing acute infiltrate inappropriate cortical setting, correlate clinically. Splenomegaly is seen which may warm further nonemergent clinical of. Brain CT with no acute intracranial process. Nonspecific white matter changes, likely secondary to chronic small vessel ischemic disease. CT scan - abdomen: report reviewed Assessment and Plan (1) GI bleed Narrative/Plan: On 82-year-old male presenting with generalized weakness and confusion with reported hematuria and possible rectal bleeding per patient's daughter. Patient himself is a poor historian. Again unclear of patient having rectal bleeding versus hematuria as he has a brief. No reported rectal bleeding currently. This is a 89 gentleman with known hemorrhoids which could be possible source. Hemoglobin stable at 11.6. He is not on any anticoagulation. Patient without any evidence of active GI bleed at this time. Last colonoscopy 2014 which at that time also had EGD done as well. Findings of colon polyp diverticulosis and external hemorrhoids. Patient currently admitted for COVID-19 infection, and will defer any endoscopic evaluation at this time unless patient has active bleeding noted. Current Visit: No Status: Acute Code(s): K92.2 - GASTROINTESTINAL HEMORRHAGE, UNSPECIFIED SNOMED Code(s): 63630763 (2) COVID Current Visit: Yes Status: Acute Code(s): U07.1 - COVID-19 SNOMED Code(s): 041220531 (3) Hematuria Current Visit: Yes Status: Acute Code(s): R31.9 - HEMATURIA, UNSPECIFIED SNOMED Code(s): 87455627 (4) Hypokalemia Current Visit: Yes Status: Acute Code(s): E87.6 - HYPOKALEMIA SNOMED Code(s): 58239150 (5) Weakness Current Visit: Yes Status: Acute Code(s): R53.1 - WEAKNESS SNOMED Code(s): 62733051 Plan: 1. Continue symptomatic and supportive care 2. Repeat daily CBC, transfuse for hemoglobin less than 7 3. Protonix 40 mg daily for GI prophylaxis 4. No plan on endoscopic evaluation at this time. Continue to monitor for active GI bleed. Thank you for this consultation, we will continue to follow. Dr. Nilton Caballero I agree with the dictator's note, documented as a scribe by Ai Woodard.
--- NOTE | 2023-07-29 14:13 | P.PN ---
Subjective Progress Note Date: 07/29/23 Hospital Course: 82-year-old male with history of advanced COPD, chronic hypoxic respiratory failure on 3 L, hypothyroidism, hypertension, peripheral neuropathy presenting with altered mentation. Patient has been complaining of rectal bleeding as well as hematuria over the last couple weeks. Vital signs stable. CBC within normal limits, potassium 3.1, COVID-19 positive, TCA positive, hematuria. GI and urology consulted. Patient currently in medical ICU as no beds available on the stepdown unit. Mental status is improved. Chest x-ray showed basilar atelectasis. EKG showed sinus rhythm. CT abdomen and pelvis, showed colonic diverticulosis, multiple opacities at the lung bases, splenomegaly. Head CT did not show any acute process. Subjective: Patient seen and examined at bedside. No acute events overnight. His mentation is improved. Pertinent positives and negatives as discussed above, a complete review of systems was performed and all other systems are negative. Vitals Signs Reviewed. General: nontoxic, no distress, appears at stated age, chronically ill-appearing Derm: warm, dry Head: atraumatic, normocephalic, symmetric Eyes: EOMI, no lid lag, anicteric sclera Mouth: no lip lesion, mucus membranes moist Cardiovascular: S1S2 reg, no murmur Lungs: CTA bilateral, no rhonchi, no rales , no accessory muscle use supplemental oxygen Abdominal: soft, nontender to palpation, no guarding, no appreciable organomegaly Ext: no gross muscle atrophy, no edema, no contractures Neuro: CN II-XI grossly intact, no focal neuro deficits Psych: Alert, oriented, appropriate affect Data Reviewed Today: Pertinent Labs: WBC 6.7, hemoglobin 11.6, platelet 266, potassium 3.3, creatinine 0.77, pro calcitonin 0.16 Imaging: No new imaging Assessment and Plan: Observation status changed inpatient, patient currently being monitored in the medical ICU as no beds available in the stepdown unit. Acute encephalopathy, resolved Acute COVID-19 infection Acute on chronic hypoxic respiratory failure COPD without exacerbation Hematuria History of nicotine dependence Rectal bleeding History of diverticulosis Hypokalemia -Continue to hold TCA -Mental status now back to normal -Pro calcitonin slightly elevated, patient currently on oral azithromycin 500 mg daily, IV ceftriaxone 2 g every 24 hours -ID consulted -Urology also consulted, patient does have a history of 5 pack per day smoking for 20 years -GI note reviewed, supportive care, daily CBC, continue PO Protonix 40 mg daily, no endoscopic evaluation at this point. -40 mEq potassium given, repeat BMP and magnesium tomorrow -Continue home antihypertensives Chronic: Hypertension Hypothyroidism BPH Peripheral neuropathy DVT ppx: SCDs Code status: Full code Anticipated discharge place: Pending clinical course Anticipated discharge time: Pending clinical course Objective - Vital Signs Vital signs: Vital Signs Temp 97.7 F 07/29/23 08:20 Pulse 70 07/29/23 08:20 Resp 16 07/29/23 08:20 BP 137/70 07/29/23 08:20 Pulse Ox 95 07/29/23 08:20 FiO2 Intake & Output 07/28/23 07/29/23 07/29/23 18:59 06:59 18:59 Output Total 0 Balance 0 Weight 54.431 kg 54.431 kg 54.431 kg Output: Urine 0 Other: Voiding Method Urinal Diaper - Labs CBC & Chem 7: 07/29/23 01:02 07/29/23 03:35 Labs: Abnormal Lab Results - Last 24 Hours (Table) 07/28/23 07/29/23 07/29/23 Range/Units 14:42 00:59 01:02 RBC 3.97 L (4.30-5.90) m/uL Hgb 11.6 L (13.0-17.5) gm/dL Hct 34.6 L (39.0-53.0) % Potassium (3.5-5.1) mmol/L Chloride (98-107) mmol/L Procalcitonin (0.02-0.09) ng/mL Urine RBC >182 H (0-5) /hpf Urine Red Cell Clumps Moderate H (None) /hpf U Tricyclic Antidepress Detected H (NotDetected) SARS-CoV-2 (PCR) Detected A (Not Detectd) 07/29/23 07/29/23 Range/Units 03:35 03:35 RBC (4.30-5.90) m/uL Hgb (13.0-17.5) gm/dL Hct (39.0-53.0) % Potassium 3.3 L (3.5-5.1) mmol/L Chloride 97 L (98-107) mmol/L Procalcitonin 0.16 H (0.02-0.09) ng/mL Urine RBC (0-5) /hpf Urine Red Cell Clumps (None) /hpf U Tricyclic Antidepress (NotDetected) SARS-CoV-2 (PCR) (Not Detectd)
--- NOTE | 2023-07-29 15:07 | P.GSCN ---
History of Present Illness Consult date: 07/29/23 Reason for Consult: Gross hematuria History of present illness: This is a 82-year-old male admitted to the hospital with weakness. He was rece ntly admitted to the hospital with rectal bleeding. Urology is consulted for gross hematuria. Patient indicated when he is voiding he is noticing blood, historian. He also has been complaining of difficulty voiding. Denies any dysuria, previous history of gross hematuria, underwent a CT abdomen and pelvis that showed no acute pathology in the kidney. No previous history of urinary retention, UTIs, or kidney stones. He is on Proscar at baseline Past Medical History Past Medical History: Asthma, COPD, GERD/Reflux, Hyperlipidemia, Hypertension, Osteoarthritis (OA), Pneumonia, Prostate Disorder, Sleep Apnea/CPAP/BIPAP, Thyroid Disorder Additional Past Medical History / Comment(s): GOUT; EDEMA IN FEET. History of Any Multi-Drug Resistant Organisms: None Reported Past Surgical History: Heart Catheterization, Hernia Repair Additional Past Surgical History / Comment(s): EXC ZEYAD CATARACTS. HIATAL HERNIA REPAIR. nose s02-24-2018 in [facility] Past Anesthesia/Blood Transfusion Reactions: No Reported Reaction Past Psychological History: No Psychological Hx Reported Smoking Status: Former smoker Past Alcohol Use History: Occasional Past Drug Use History: None Reported - Past Family History Sister(s) Family Medical History: Cancer Medications and Allergies Home Medications Medication Instructions Recorded Confirmed Type Albuterol Sulfate [Proventil Hfa] 1 puff INHALATION RT-TID PRN 06/01/15 07/28/23 History Carvedilol [Coreg] 3.125 mg PO BID-W/MEALS 06/01/15 07/28/23 History Finasteride [Proscar] 5 mg PO DAILY 06/01/15 07/28/23 History Levothyroxine Sodium [Synthroid] 50 mcg PO DAILY 06/01/15 07/28/23 History Omeprazole [PriLOSEC] 20 mg PO AC-BID 06/01/15 07/28/23 History Albuterol Nebulized [Ventolin 2.5 mg INHALATION RT-Q4H 02/26/18 07/28/23 History Nebulized] Fluticasone Nasal [place] [Flonase 1 spray EA NOSTRIL BID 02/26/18 07/28/23 History Nasal [place]] Nitroglycerin Sl Tabs [Nitrostat] 0.4 mg SUBLINGUAL Q5M PRN 02/26/18 07/28/23 History Pregabalin [Lyrica] 150 mg PO BID 02/26/18 07/28/23 History Sodium Chloride 0.65% Nasal [Deep 2 spray NASAL 5XD PRN 02/26/18 07/28/23 History Sea (Saline)] Amitriptyline HCl [Elavil] 75 mg PO HS 07/28/23 07/28/23 History Mometasone/Formoterol [Dulera 200 2 puff INHALATION RT-BID 07/28/23 07/28/23 History Mcg-5 Mcg Inhaler] hydroCHLOROthiazide [Hydrodiuril] 25 mg PO DAILY 07/28/23 07/28/23 History Allergies Allergy/AdvReac Type Severity Reaction Status Date / Time No Known Allergies Allergy Verified 07/28/23 16:56 Surgical - Exam Vital Signs Temp Pulse Resp BP Pulse Ox 989 F H 92 16 167/94 92 L 07/28/23 13:13 07/28/23 13:13 07/28/23 13:13 07/28/23 13:13 07/28/23 13:13 - General no distress, no pain - Eyes normal ocular movement, no pale - ENT normal nares, normal mucosa - Respiratory normal expansion, normal respiratory effort - Abdomen Abdomen: soft, tender (Suprapubic region), no distended - Genitourinary normal penis with no external lesions, testicles present Results - Labs 07/29/23 01:02 07/29/23 03:35 Abnormal Lab Results - Last 24 Hours (Table) 07/28/23 07/28/23 07/28/23 Range/Units 13:18 13:19 13:19 RBC (4.30-5.90) m/uL Hgb (13.0-17.5) gm/dL Hct (39.0-53.0) % Lymphocytes # 0.9 L (1.0-4.8) k/uL Potassium 3.1 L (3.5-5.1) mmol/L Chloride 97 L (98-107) mmol/L Carbon Dioxide 33 H (22-30) mmol/L BUN 23 H (9-20) mg/dL Glucose 114 H (74-99) mg/dL POC Glucose (mg/dL) 111 H (70-110) mg/dL Procalcitonin (0.02-0.09) ng/mL Urine RBC (0-5) /hpf Urine Red Cell Clumps (None) /hpf U Tricyclic Antidepress (NotDetected) SARS-CoV-2 (PCR) (Not Detectd) 07/28/23 07/29/23 07/29/23 Range/Units 14:42 00:59 01:02 RBC 3.97 L (4.30-5.90) m/uL Hgb 11.6 L (13.0-17.5) gm/dL Hct 34.6 L (39.0-53.0) % Lymphocytes # (1.0-4.8) k/uL Potassium (3.5-5.1) mmol/L Chloride (98-107) mmol/L Carbon Dioxide (22-30) mmol/L BUN (9-20) mg/dL Glucose (74-99) mg/dL POC Glucose (mg/dL) (70-110) mg/dL Procalcitonin (0.02-0.09) ng/mL Urine RBC >182 H (0-5) /hpf Urine Red Cell Clumps Moderate H (None) /hpf U Tricyclic Antidepress Detected H (NotDetected) SARS-CoV-2 (PCR) Detected A (Not Detectd) 07/29/23 07/29/23 Range/Units 03:35 03:35 RBC (4.30-5.90) m/uL Hgb (13.0-17.5) gm/dL Hct (39.0-53.0) % Lymphocytes # (1.0-4.8) k/uL Potassium 3.3 L (3.5-5.1) mmol/L Chloride 97 L (98-107) mmol/L Carbon Dioxide (22-30) mmol/L BUN (9-20) mg/dL Glucose (74-99) mg/dL POC Glucose (mg/dL) (70-110) mg/dL Procalcitonin 0.16 H (0.02-0.09) ng/mL Urine RBC (0-5) /hpf Urine Red Cell Clumps (None) /hpf U Tricyclic Antidepress (NotDetected) SARS-CoV-2 (PCR) (Not Detectd) Diabetes panel 07/28/23 07/29/23 Range/Units 13:19 03:35 Sodium 142 137 (137-145) mmol/L Potassium 3.1 L 3.3 L (3.5-5.1) mmol/L Chloride 97 L 97 L (98-107) mmol/L Carbon Dioxide 33 H 28 (22-30) mmol/L BUN 23 H 20 (9-20) mg/dL Creatinine 0.79 0.77 (0.66-1.25) mg/dL Glucose 114 H 80 (74-99) mg/dL Calcium 9.0 8.6 (8.4-10.2) mg/dL AST 35 (17-59) U/L ALT 23 (4-49) U/L Alkaline Phosphatase 71 (38-126) U/L Total Protein 7.1 (6.3-8.2) g/dL Albumin 3.7 (3.5-5.0) g/dL Calcium panel 07/28/23 07/29/23 Range/Units 13:19 03:35 Calcium 9.0 8.6 (8.4-10.2) mg/dL Albumin 3.7 (3.5-5.0) g/dL Pituitary panel 07/28/23 07/29/23 Range/Units 13:19 03:35 Sodium 142 137 (137-145) mmol/L Potassium 3.1 L 3.3 L (3.5-5.1) mmol/L Chloride 97 L 97 L (98-107) mmol/L Carbon Dioxide 33 H 28 (22-30) mmol/L BUN 23 H 20 (9-20) mg/dL Creatinine 0.79 0.77 (0.66-1.25) mg/dL Glucose 114 H 80 (74-99) mg/dL Calcium 9.0 8.6 (8.4-10.2) mg/dL Adrenal panel 07/28/23 07/29/23 Range/Units 13:19 03:35 Sodium 142 137 (137-145) mmol/L Potassium 3.1 L 3.3 L (3.5-5.1) mmol/L Chloride 97 L 97 L (98-107) mmol/L Carbon Dioxide 33 H 28 (22-30) mmol/L BUN 23 H 20 (9-20) mg/dL Creatinine 0.79 0.77 (0.66-1.25) mg/dL Glucose 114 H 80 (74-99) mg/dL Calcium 9.0 8.6 (8.4-10.2) mg/dL Total Bilirubin 1.0 (0.2-1.3) mg/dL AST 35 (17-59) U/L ALT 23 (4-49) U/L Alkaline Phosphatase 71 (38-126) U/L Total Protein 7.1 (6.3-8.2) g/dL Albumin 3.7 (3.5-5.0) g/dL - Imaging CT scan - abdomen: image reviewed (No acute pathology) Assessment and Plan Assessment: 82-year-old with history of rectal bleeding, gross hematuria. Difficult to obtain a complete history from the patient. He's also been complaining of difficulty voiding association with gross hematuria. Had a CT abdomen and pelvis which I reviewed I also any pathology in the kidney (1) Hematuria Narrative/Plan: We'll need outpatient cystoscopy Current Visit: Yes Status: Acute Code(s): R31.9 - HEMATURIA, UNSPECIFIED SNOMED Code(s): 74870947 (2) BPH loc w urin obs/LUTS Narrative/Plan: Obtain a bladder scan, if greater than 400 mL, recommend inserting a Martinez catheter Continue Proscar We'll start Flomax Current Visit: Yes Status: Acute Code(s): N40.1 - BENIGN PROSTATIC HYPERPLASIA WITH LOWER URINARY TRACT SYMP SNOMED Code(s): 635756920
[2023-07-29] MEDS ORDERED: POTASSIUM CHLORIDE ER 20 MEQ TAB.ER PO SCH (19:00)
[2023-07-30 04:54] LABS: Basophils % (A) 0 %; Eosinophils # (A) 0.1 k/uL (0-0.7); Eosinophils % (A) 2 %; HCT 32.6 % (39.0-53.0); HGB 11.2 gm/dL (13.0-17.5); Lymphocytes # (A) 1.2 k/uL (1.0-4.8); Lymphocytes % (A) 19 %; MCHC 34.4 g/dL (31.0-37.0); Mean Platelet Volume 8.5; Monocytes # (A) 0.4 k/uL (0-1.0); Monocytes % (A) 7 %; Neutrophils # (A) 4.2 k/uL (1.3-7.7); Neutrophils % (A) 71 %; Platelet Count 316 k/uL (150-450); Poikilocytosis Slight; RBC 3.74 m/uL (4.30-5.90); RDW 15.2 % (11.5-15.5)
[2023-07-30 05:12] LABS: ALT 17 U/L (4-49); AST 25 U/L (17-59); African American GFR (CKD) >90 (>60 ml/min/1.73 sqM); Albumin 2.7 g/dL (3.5-5.0); Alkaline Phosphatase 55 U/L (38-126); Anion Gap 9 mmol/L; Blood Urea Nitrogen 19 mg/dL (9-20); Calcium 8.4 mg/dL (8.4-10.2); Carbon Dioxide 29 mmol/L (22-30); Chloride 100 mmol/L (98-107); Glucose 92 mg/dL (74-99); Non-African American GFR(CKD) 82 (>60 ml/min/1.73 sqM); Potassium 3.4 mmol/L (3.5-5.1); Sodium 138 mmol/L (137-145); Total Bilirubin 0.4 mg/dL (0.2-1.3); Total Protein 5.5 g/dL (6.3-8.2)
[2023-07-30] MEDS: LEVOTHYROXINE 50 MCG TAB PO SCH (07:01)
[2023-07-30] MEDS: carvediloL 3.125 MG TAB PO SCH ×2 (07:01→18:03)
[2023-07-30] MEDS: PANTOPRAZOLE 40 MG TABLET PO SCH (07:02)
--- NOTE | 2023-07-30 07:02 | P.CONS ---
History of Present Illness - Reason for Consult Consult date: 07/29/23 Covid positive Requesting physician: Fercho Paniagua - Chief Complaint Weakness and possible bleeding per rectum x one day - History of Present Illness Patient is a 82-year-old male with a past medical history significant for hypertension hyperlipidemia COPD asthma former smoker presenting to the ER yesterday afternoon for evaluation of weakness confusion and possible rectal bleeding patient family called EMS stating that he had some bleeding and he was less responsive than usual patient on presentation to the hospital was afebrile and no fever has been recorded subsequently patient was not tachycardic or hypotensive O2 sats of 92% on room air patient did have a normal white count creatinine was normal no exams are normal urine dip shows evidence of hematuria urine testing positive for tricyclic patient also tested positive for COVID that has prompted this infectious disease consultation patient did have a chest x-ray basilar atelectasis versus airspace disease COPD changes CT of abdominal pelvis distal colonic diverticulosis without acute diverticulitis multifocal airspace opacities concerning for consolidation lung bases greater on the right could reflect developing acute infiltrate patient has been admitted to the hospital started on ceftriaxone and azithromycin infectious disease was consulted for further management, patient is currently breathing comfortably patient denies having any chest pain did have very minimal cough no sputum production denies any nausea vomiting no abdominal pain and no diarrhea Review of Systems Positive point and negatives has been mentioned in the HPI, complete review of systems was performed and all other systems are negative Past Medical History Past Medical History: Asthma, COPD, GERD/Reflux, Hyperlipidemia, Hypertension, Osteoarthritis (OA), Pneumonia, Prostate Disorder, Sleep Apnea/CPAP/BIPAP, Thyroid Disorder Additional Past Medical History / Comment(s): GOUT; EDEMA IN FEET. History of Any Multi-Drug Resistant Organisms: None Reported Past Surgical History: Heart Catheterization, Hernia Repair Additional Past Surgical History / Comment(s): EXC ZEYAD CATARACTS. HIATAL HERNIA REPAIR. nose s02-24-2018 in [facility] Past Anesthesia/Blood Transfusion Reactions: No Reported Reaction Past Psychological History: No Psychological Hx Reported Smoking Status: Former smoker Past Alcohol Use History: Occasional Past Drug Use History: None Reported - Past Family History Sister(s) Family Medical History: Cancer Medications and Allergies Home Medications Medication Instructions Recorded Confirmed Type Albuterol Sulfate [Proventil Hfa] 1 puff INHALATION RT-TID PRN 06/01/15 07/28/23 History Carvedilol [Coreg] 3.125 mg PO BID-W/MEALS 06/01/15 07/28/23 History Finasteride [Proscar] 5 mg PO DAILY 06/01/15 07/28/23 History Levothyroxine Sodium [Synthroid] 50 mcg PO DAILY 06/01/15 07/28/23 History Omeprazole [PriLOSEC] 20 mg PO AC-BID 06/01/15 07/28/23 History Albuterol Nebulized [Ventolin 2.5 mg INHALATION RT-Q4H 02/26/18 07/28/23 History Nebulized] Fluticasone Nasal [place] [Flonase 1 spray EA NOSTRIL BID 02/26/18 07/28/23 History Nasal [place]] Nitroglycerin Sl Tabs [Nitrostat] 0.4 mg SUBLINGUAL Q5M PRN 02/26/18 07/28/23 History Pregabalin [Lyrica] 150 mg PO BID 02/26/18 07/28/23 History Sodium Chloride 0.65% Nasal [Deep 2 spray NASAL 5XD PRN 02/26/18 07/28/23 History Sea (Saline)] Mometasone/Formoterol [Dulera 200 2 puff INHALATION RT-BID 07/28/23 07/28/23 History Mcg-5 Mcg Inhaler] hydroCHLOROthiazide [Hydrodiuril] 25 mg PO DAILY 07/28/23 07/28/23 History Amoxic-Pot Clav 875-125Mg 1 tab PO BID 7 Days #14 tab 07/31/23 Rx [Augmentin 875-125] Potassium Chloride ER [K-Dur 10] 10 meq PO DAILY #3 tab 07/31/23 Rx Tamsulosin [Flomax] 0.4 mg PO DAILY cap 07/31/23 Rx Allergies Allergy/AdvReac Type Severity Reaction Status Date / Time No Known Allergies Allergy Verified 07/28/23 16:56 Physical Exam Vitals: Vital Signs Temp Pulse Pulse Resp BP BP Pulse Ox 07/29/23 08:20 97.7 F 70 16 137/70 95 07/29/23 02:00 97.5 F L 15 167/87 96 07/28/23 22:00 98.1 F 16 184/70 94 L 07/28/23 20:00 95 18 147/94 95 07/28/23 17:23 95 16 160/94 95 07/28/23 15:22 75 16 161/85 97 07/28/23 13:33 98.9 F Intake and Output 07/28/23 07/29/23 07/29/23 22:59 06:59 14:59 Output Total 0 Balance 0 Output: Urine 0 Other: Voiding Method Urinal Diaper Weight 54.431 kg 54.431 kg GENERAL DESCRIPTION: An elderly male up in the chair, no distress. No tachypnea or accessory muscle of respiration use. HEENT: Shows Pallor , no scleral icterus. Oral mucous membrane is dry. No pharyngeal erythema or thrush NECK: Trachea central, no thyromegaly. LUNGS: Unlabored breathing. Decreased intensity of breath sounds No wheeze or c rackle. HEART: S1, S2, regular rate and rhythm. No loud murmur ABDOMEN: Soft, no tenderness EXTREMITIES: No edema of feet. SKIN: No rash, no masses palpable. NEUROLOGICAL: The patient is awake, alert, oriented x3, mood and affect normal. Results CBC & Chem 7: 07/31/23 05:44 07/31/23 05:44 Labs: Abnormal Lab Results - Last 24 Hours (Table) 07/28/23 07/28/23 07/28/23 Range/Units 13:18 13:19 13:19 RBC (4.30-5.90) m/uL Hgb (13.0-17.5) gm/dL Hct (39.0-53.0) % Lymphocytes # 0.9 L (1.0-4.8) k/uL Potassium 3.1 L (3.5-5.1) mmol/L Chloride 97 L (98-107) mmol/L Carbon Dioxide 33 H (22-30) mmol/L BUN 23 H (9-20) mg/dL Glucose 114 H (74-99) mg/dL POC Glucose (mg/dL) 111 H (70-110) mg/dL Procalcitonin (0.02-0.09) ng/mL Urine RBC (0-5) /hpf Urine Red Cell Clumps (None) /hpf U Tricyclic Antidepress (NotDetected) SARS-CoV-2 (PCR) (Not Detectd) 07/28/23 07/29/23 07/29/23 Range/Units 14:42 00:59 01:02 RBC 3.97 L (4.30-5.90) m/uL Hgb 11.6 L (13.0-17.5) gm/dL Hct 34.6 L (39.0-53.0) % Lymphocytes # (1.0-4.8) k/uL Potassium (3.5-5.1) mmol/L Chloride (98-107) mmol/L Carbon Dioxide (22-30) mmol/L BUN (9-20) mg/dL Glucose (74-99) mg/dL POC Glucose (mg/dL) (70-110) mg/dL Procalcitonin (0.02-0.09) ng/mL Urine RBC >182 H (0-5) /hpf Urine Red Cell Clumps Moderate H (None) /hpf U Tricyclic Antidepress Detected H (NotDetected) SARS-CoV-2 (PCR) Detected A (Not Detectd) 07/29/23 07/29/23 Range/Units 03:35 03:35 RBC (4.30-5.90) m/uL Hgb (13.0-17.5) gm/dL Hct (39.0-53.0) % Lymphocytes # (1.0-4.8) k/uL Potassium 3.3 L (3.5-5.1) mmol/L Chloride 97 L (98-107) mmol/L Carbon Dioxide (22-30) mmol/L BUN (9-20) mg/dL Glucose (74-99) mg/dL POC Glucose (mg/dL) (70-110) mg/dL Procalcitonin 0.16 H (0.02-0.09) ng/mL Urine RBC (0-5) /hpf Urine Red Cell Clumps (None) /hpf U Tricyclic Antidepress (NotDetected) SARS-CoV-2 (PCR) (Not Detectd) Assessment and Plan (1) COVID Status: Acute Code(s): U07.1 - COVID-19 SNOMED Code(s): 093209733 (2) Pneumonia Status: Acute Code(s): J18.9 - PNEUMONIA, UNSPECIFIED ORGANISM SNOMED Code(s): 793384640 Plan: 1patient is 82-year-old male presenting to hospital concerning for weakness confusion and rectal bleeding also noticed to have a positive COVID-19 PCR patient respiratory symptoms are minimal and possible mild COVID-19 infection with concern for mostly basilar consolidation complaint of secondary bacterial pneumonia not entirely excluded, treatment for COVID will be mostly supportive no need for steroids or remdesivir 2-we will try to obtain sputum for Gram stain and culture 3-check a CRP and a procalcitonin level 4-continue with the Rocephin and Zithromax We will follow on clinical condition and cultures to further adjust medication if needed Thank you for this consultation we will follow the patient along with you Dictation was produced using [employer] dictation software. please excuse any grammatical, word or spelling errors. Time with Patient: Greater than 30
[2023-07-30] MEDS: ALBUTEROL HFA INHALER INHALATION PRN ×2 (08:28→15:51)
[2023-07-30] MEDS: SYMBICORT 160-4.5 MCG INHALER INHALATION SCH ×2 (08:28→20:22)
[2023-07-30] MEDS: AZITHROMYCIN 500 MG TAB PO SCH (09:45)
[2023-07-30] MEDS: FINASTERIDE 5 MG TAB PO SCH (09:45)
[2023-07-30] MEDS: PREGABALIN 75 MG CAP PO SCH ×2 (09:46→20:18)
[2023-07-30] MEDS: TAMSULOSIN 0.4 MG CAP.ER.24H PO SCH (09:47)
[2023-07-30] MEDS ORDERED: POTASSIUM CHLORIDE ER 20 MEQ TAB.ER PO STA (12:33)
--- NOTE | 2023-07-30 12:35 | P.PN ---
Subjective Progress Note Date: 07/30/23 Hospital Course: 82-year-old male with history of advanced COPD, chronic hypoxic respiratory fa ilure on 3 L, hypothyroidism, hypertension, peripheral neuropathy presenting with altered mentation. Patient has been complaining of rectal bleeding as well as hematuria over the last couple weeks. Vital signs stable. CBC within normal limits, potassium 3.1, COVID-19 positive, TCA positive, hematuria. GI and urology consulted. Patient currently in medical ICU as no beds available on the stepdown unit. Mental status is improved. Chest x-ray showed basilar atelectasis. EKG showed sinus rhythm. CT abdomen and pelvis, showed colonic diverticulosis, multiple opacities at the lung bases, splenomegaly. Head CT did not show any acute process. Neurology recommending outpatient cystoscopy, GI will not be doing any endoscopic evaluation. He is also on IV antibiotics. Patient currently in medical ICU as 3 S. overflow. Subjective: Patient seen and examined at bedside. No acute events overnight. Mentation back to her baseline. Had a bowel movement this morning, no evidence of blee ding, does not have any gross hematuria at the moment. Pertinent positives and negatives as discussed above, a complete review of systems was performed and all other systems are negative. Vitals Signs Reviewed. General: nontoxic, no distress, appears at stated age, chronically ill-appearing Derm: warm, dry Head: atraumatic, normocephalic, symmetric Eyes: EOMI, no lid lag, anicteric sclera Mouth: no lip lesion, mucus membranes moist Cardiovascular: S1S2 reg, no murmur Lungs: CTA bilateral, no rhonchi, no rales , no accessory muscle use supplemental oxygen Abdominal: soft, nontender to palpation, no guarding, no appreciable organomegaly Ext: no gross muscle atrophy, no edema, no contractures Neuro: CN II-XI grossly intact, no focal neuro deficits Psych: Alert, oriented, appropriate affect Data Reviewed Today: Pertinent Labs: WBC 6, hemoglobin 11.2, potassium 2.4, creatinine 0.5 Imaging: No new imaging Assessment and Plan: Acute encephalopathy, resolved Acute COVID-19 infection Acute on chronic hypoxic respiratory failure, back to baseline oxygen requirement COPD without exacerbation Gross Hematuria, resolved History of BPH History of nicotine dependence Lower GI bleed History of diverticulosis Hypokalemia -Continue to hold TCA, unclear why he takes it -Mental status now back to normal -Pro calcitonin slightly elevated, patient currently on oral azithromycin 500 mg daily, IV ceftriaxone 2 g every 24 hours -ID following, cultures pending -Urology recommending outpatient cystoscopy, started on Flomax 0.4 mg daily -Continue finasteride 5 mg daily -GI following, supportive care, daily CBC, continue PO Protonix 40 mg daily, no endoscopic evaluation at this point. -40 mEq PO potassium given, repeat BMP and magnesium tomorrow -Continue home antihypertensives Chronic: Hypertension Hypothyroidism BPH Peripheral neuropathy DVT ppx: SCDs Code status: Full code Anticipated discharge place: Likely subacute rehab Anticipated discharge time: 1-2 days Objective - Vital Signs Vital signs: Vital Signs Temp 97.6 F 07/30/23 08:00 Pulse 77 07/30/23 08:00 Resp 17 07/30/23 08:00 BP 137/75 07/30/23 08:00 Pulse Ox 94 L 07/30/23 08:28 FiO2 Intake & Output 07/29/23 07/30/23 07/30/23 18:59 06:59 18:59 Intake Total 600 Output Total 400 Balance 600 -400 Weight 54.431 kg Intake: Oral 600 Output: Urine 400 Other: Voiding Method Urinal Urinal External Catheter Diaper Diaper # Voids 2 # Bowel Movements 0 - Labs CBC & Chem 7: 07/30/23 04:10 07/30/23 04:10 Labs: Abnormal Lab Results - Last 24 Hours (Table) 07/30/23 07/30/23 Range/Units 04:10 04:10 RBC 3.74 L (4.30-5.90) m/uL Hgb 11.2 L (13.0-17.5) gm/dL Hct 32.6 L (39.0-53.0) % Potassium 3.4 L (3.5-5.1) mmol/L Total Protein 5.5 L (6.3-8.2) g/dL Albumin 2.7 L (3.5-5.0) g/dL Microbiology - Last 24 Hours (Table) 07/29/23 11:41 Gram Stain - Preliminary Sputum
--- NOTE | 2023-07-30 17:57 | P.PN ---
Subjective Progress Note Date: 07/30/23 Principal diagnosis: GI bleed This is a cousin 82-year-old male who is being seen in the ICU as overflow medical patient who was admitted for COVID-19 infection, confusion and gen eralized weakness. He has a past medical history including hypertension, hypothyroid, and COPD on home oxygen. Patient's daughter is at the bedside who is trying to provide some history and states that patient's said that he was having hematuria as well as possibly some of rectal bleeding. Last EGD colonoscopy done in June [address] Dasilva for history of GERD. Findings of antral gastritis, esophagitis, small hiatal hernia and colonoscopy significant for colon polyp and diverticulosis as well as his external hemorrhoids. Patient is denying any current rectal bleeding. He denies any abdominal pain, nausea or vomiting. Patient is not on any anticoagulation. He had a CT of the abdomen and pelvis with contrast from that reported distal colonic diverticulosis without CT evidence for acute diverticulitis. 07/30/2023 Patient seen and examined today as a follow-up. He remains in the ICU as a overflow. Denies any blood per rectum or bloody bowel movement. No bowel mov ements at all. Denies abdominal pain, nausea or vomiting. Hemoglobin stable at 11.2 from 11.6 yesterday. Objective - Vital Signs Vital signs: Vital Signs Temp 97.6 F 07/30/23 02:00 Pulse 63 07/30/23 02:00 Resp 14 07/30/23 02:00 BP 137/67 07/30/23 02:00 Pulse Ox 94 L 07/30/23 08:28 FiO2 Intake & Output 07/29/23 07/30/23 07/30/23 18:59 06:59 18:59 Intake Total 600 Output Total 400 Balance 600 -400 Weight 54.431 kg Intake: Oral 600 Output: Urine 400 Other: Voiding Method Urinal Urinal Diaper Diaper # Voids 2 # Bowel Movements 0 - Exam General appearance: The patient is alert, oriented, appears in no acute distress. HET: Head is normocephalic and atraumatic. Conjunctiva pink. Sclera anicteric. Neck: Supple without lymphadenopathy. Abdomen: Soft, nontender, nondistended with bowel sounds. No guarding or rigidity. Extremities: Normal skin color and turgor. No pedal edema Skin: No rashes, no jaundice Neurological: No focal deficits. Alert and oriented. - Labs CBC & Chem 7: 07/30/23 04:10 07/30/23 04:10 Labs: Abnormal Lab Results - Last 24 Hours (Table) 07/29/23 07/30/23 07/30/23 Range/Units 03:35 04:10 04:10 RBC 3.74 L (4.30-5.90) m/uL Hgb 11.2 L (13.0-17.5) gm/dL Hct 32.6 L (39.0-53.0) % Potassium 3.4 L (3.5-5.1) mmol/L Total Protein 5.5 L (6.3-8.2) g/dL Albumin 2.7 L (3.5-5.0) g/dL Procalcitonin 0.16 H (0.02-0.09) ng/mL Assessment and Plan (1) GI bleed Narrative/Plan: On 82-year-old male presenting with generalized weakness and confusion with reported hematuria and possible rectal bleeding per patient's daughter. Patient himself is a poor historian. Again unclear of patient having rectal bleeding versus hematuria as he has a brief. No reported rectal bleeding currently. This is a 89 gentleman with known hemorrhoids which could be possible source. Hemoglobin stable at 11.6. He is not on any anticoagulation. Patient without any evidence of active GI bleed at this time. Last colonoscopy 2014 which at that time also had EGD done as well. Findings of colon polyp diverticulosis and external hemorrhoids. Patient currently admitted for COVID-19 infection, and will defer any endoscopic evaluation at this time unless patient has active bleeding noted. Current Visit: No Status: Acute Code(s): K92.2 - GASTROINTESTINAL HEMORRHAGE, UNSPECIFIED SNOMED Code(s): 17015196 (2) COVID Current Visit: Yes Status: Acute Code(s): U07.1 - COVID-19 SNOMED Code(s): 586031784 (3) Hematuria Current Visit: Yes Status: Acute Code(s): R31.9 - HEMATURIA, UNSPECIFIED SNOMED Code(s): 68466091 (4) Hypokalemia Current Visit: Yes Status: Acute Code(s): E87.6 - HYPOKALEMIA SNOMED Code(s): 07603342 (5) Weakness Current Visit: Yes Status: Acute Code(s): R53.1 - WEAKNESS SNOMED Code(s): 70171718 Plan: 1. Continue symptomatic and supportive care 2. Continue medical management 3. Protonix 40 mg daily for GI prophylaxis 4. No plan on endoscopic evaluation. No further evidence of GI bleed. Thank you for this consultation, we will sign off at this time. Dr. Nilton Caballero I agree with the dictator's note, documented as a scribe by Ai Wodoard.
[2023-07-31 03:34] VITALS: TEMP 98.2
[2023-07-31 06:09] LABS: Basophils % (A) 0 %; Eosinophils # (A) 0.1 k/uL (0-0.7); Eosinophils % (A) 1 %; HCT 32.6 % (39.0-53.0); HGB 11.1 gm/dL (13.0-17.5); Lymphocytes # (A) 1.4 k/uL (1.0-4.8); Lymphocytes % (A) 18 %; MCH 29.6 pg (25.0-35.0); Mean Platelet Volume 8.4; Monocytes # (A) 0.4 k/uL (0-1.0); Monocytes % (A) 5 %; Neutrophils # (A) 5.7 k/uL (1.3-7.7); Neutrophils % (A) 74 %; Platelet Count 346 k/uL (150-450); Poikilocytosis Slight; RBC 3.75 m/uL (4.30-5.90); RDW 14.9 % (11.5-15.5); WBC 7.7 k/uL (3.8-10.6)
[2023-07-31 06:56] LABS: African American GFR (CKD) >90 (>60 ml/min/1.73 sqM); Anion Gap 11 mmol/L; Blood Urea Nitrogen 16 mg/dL (9-20); Calcium 8.4 mg/dL (8.4-10.2); Carbon Dioxide 31 mmol/L (22-30); Chloride 96 mmol/L (98-107); Glucose 111 mg/dL (74-99); Magnesium 1.7 mg/dL (1.6-2.3); Non-African American GFR(CKD) 80 (>60 ml/min/1.73 sqM); Potassium 3.4 mmol/L (3.5-5.1); Sodium 138 mmol/L (137-145)
[2023-07-31] MEDS: PANTOPRAZOLE 40 MG TABLET PO SCH (06:59)
[2023-07-31] MEDS: carvediloL 3.125 MG TAB PO SCH (06:59)
[2023-07-31] MEDS: LEVOTHYROXINE 50 MCG TAB PO SCH (06:59)
[2023-07-31] MEDS: SYMBICORT 160-4.5 MCG INHALER INHALATION SCH (08:03)
[2023-07-31] MEDS ORDERED: POTASSIUM CHLORIDE ER 20 MEQ TAB.ER PO ONE (09:00)
[2023-07-31] MEDS: PREGABALIN 75 MG CAP PO SCH (09:32)
[2023-07-31] MEDS: FINASTERIDE 5 MG TAB PO SCH (09:32)
[2023-07-31] MEDS: TAMSULOSIN 0.4 MG CAP.ER.24H PO SCH (09:35)
--- NOTE | 2023-07-31 09:53 | P.DS ---
Providers Date of admission: 07/28/23 19:48 Expected date of discharge: 07/31/23 Attending physician: Thomas De León MD Consults: 07/29/23 00:20 Consult Physician Routine Consulting Provider: Kevin Redmond Consult Reason/Comments: hematuria Do you want consulting provider notified?: Yes 07/29/23 04:56 Consult Physician Routine Consulting Provider: Candice Schuster Consult Reason/Comments: covid positive Do you want consulting provider notified?: Yes, Notify in am Primary care physician: [facility] Hospital Course: Discharge Diagnosis: COVID-19 pneumonia, acute on chronic hypoxic respiratory failure COPD without acute exacerbation Hypokalemia HTN Gross hematuria-resolved. Plan is for outpatient follow-up with Dr. Redmond, uro singed off Lower GI bleed, resolved-outpatient follow-up with Dr. Caballero GI singed off Toxic metabolic encephalopathy, resolved Chronic: HLD Gout GERD Hypothyroidism BPH Hospital Course: Patient is a an 82-year-old male with the COPD on home O2 at 3 L, hypothyroidism, hypertension, and peripheral neuropathy who presented to the emergency department with altered mentation. On arrival to the emergency department his vitals were essentially unremarkable. Initial laboratory analysis showed potassium of 3.1, BUN 23, urine toxicology positive for tricyclics, and hematuria. Patient had also been reporting intermittent blood in his stools. Chest x-ray showed bilateral atelectasis versus airspace disease as well as COPD changes. Patient underwent CT abdomen and pelvis which showed diverticulosis without diverticulitis with multifocal opacities in the lung bases and splenomegaly. Patient was subsequently diagnosed with possible pneumonia. He was started on Rocephin and Zithromax. Arrangements are made for admission. After admission patient COVID-19 testing came back positive, RSV and influenza A/B were negative. He was seen by urology who recommended continuing Cozaar and starting Flomax as well as outpatient cystoscopy. He was seen by GI who recommended Protonix 40 mg daily and outpatient colonoscopy. He was subsequently cleared by GI and urology. Infectious disease was consulted who recommended checking a CRP and pro calcitonin. Procalcitonin came back low at 0.16. He was conitnued on ABX per ID. He was then determined stable for dischar ge to SNF. Follow-up: Dr. Caballero for COlon, Dr. Turk for cysto, and PCP on discharge from [facility]. Potassium 10 meq daily for 3 days and then repeat BMP Patient seen and examined at bedside. He is doing well. He does not think he every had COVID. Daughter reports that appeittie was low and is getting better now Vital signs reviewed and stable. General: nontoxic, no distress, appears at stated age Cardiovascular: S1S2 reg, no murmur, positive posterior tibial pulse bilateral, Lungs: CTA bilateral, no rhonchi, no rales , no accessory muscle use Abdominal: soft, nontender to palpation, no guarding, no appreciable organomegaly Ext: no gross muscle atrophy, no edema b/l lower extremities, no contractures Neuro: CN II-XI grossly intact, no focal neuro deficits Psych: Alert, oriented, appropriate affect A total of 37 minutes of time were spent preparing this complex discharge summary. Patient was discharged on 07/31/23. This dictation was prepared using [employer] voice recognition software. Though every attempt is made to correct errors during dictation some may still exist. Patient Condition at Discharge: Stable Plan - Discharge Summary Discharge Rx Participant: No New Discharge Prescriptions: New Tamsulosin [Flomax] 0.4 mg PO DAILY cap Potassium Chloride ER [K-Dur 10] 10 meq PO DAILY #3 tab Continue Albuterol Sulfate [Proventil Hfa] 1 puff INHALATION RT-TID PRN PRN Reason: Shortness Of Breath Omeprazole [PriLOSEC] 20 mg PO AC-BID Carvedilol [Coreg] 3.125 mg PO BID-W/MEALS Levothyroxine Sodium [Synthroid] 50 mcg PO DAILY Finasteride [Proscar] 5 mg PO DAILY Nitroglycerin Sl Tabs [Nitrostat] 0.4 mg SUBLINGUAL Q5M PRN PRN Reason: Chest Pain Sodium Chloride 0.65% Nasal [Deep [place] (Saline)] 2 spray NASAL 5XD PRN PRN Reason: DRY NOSE/ALLERGY/COLD SYMPTOMS Pregabalin [Lyrica] 150 mg PO BID Fluticasone Nasal [place] [Flonase Nasal [place]] 1 spray EA NOSTRIL BID Albuterol Nebulized [Ventolin Nebulized] 2.5 mg INHALATION RT-Q4H Mometasone/Formoterol [Dulera 200 Mcg-5 Mcg Inhaler] 2 puff INHALATION RT-BID hydroCHLOROthiazide [Hydrodiuril] 25 mg PO DAILY Discontinued Amitriptyline HCl [Elavil] 75 mg PO HS Discharge Medication List Albuterol Sulfate [Proventil Hfa] 1 puff INHALATION RT-TID PRN 06/01/15 [History] Carvedilol [Coreg] 3.125 mg PO BID-W/MEALS 06/01/15 [History] Finasteride [Proscar] 5 mg PO DAILY 06/01/15 [History] Levothyroxine Sodium [Synthroid] 50 mcg PO DAILY 06/01/15 [History] Omeprazole [PriLOSEC] 20 mg PO AC-BID 06/01/15 [History] Albuterol Nebulized [Ventolin Nebulized] 2.5 mg INHALATION RT-Q4H 02/26/18 [History] Fluticasone Nasal [place] [Flonase Nasal [place]] 1 spray EA NOSTRIL BID 02/26/18 [History] Nitroglycerin Sl Tabs [Nitrostat] 0.4 mg SUBLINGUAL Q5M PRN 02/26/18 [History] Pregabalin [Lyrica] 150 mg PO BID 02/26/18 [History] Sodium Chloride 0.65% Nasal [[place] (Saline)] 2 spray NASAL 5XD PRN 02/26/18 [History] Mometasone/Formoterol [Dulera 200 Mcg-5 Mcg Inhaler] 2 puff INHALATION RT-BID 07/28/23 [History] hydroCHLOROthiazide [Hydrodiuril] 25 mg PO DAILY 07/28/23 [History] Potassium Chloride ER [K-Dur 10] 10 meq PO DAILY #3 tab 07/31/23 [Rx] Tamsulosin [Flomax] 0.4 mg PO DAILY cap 07/31/23 [Rx] Follow up Appointment(s)/Referral(s): Kevin Redmond MD [STAFF PHYSICIAN] - 2 Weeks (For cystoscopy ) Corinne Mckinnon PT [REFERRING] - 1-2 days Activity/Diet/Wound Care/Special Instructions: Activity: As tolerated Diet: Regular Special Instructions: BMP in 3 days DX: hypokalemia Discharge Disposition: HOME SELF-CARE
[2023-07-31 10:00] VITALS: BP 134/80; PULSE 67; RESP 16
--- NOTE | 2023-07-31 10:04 | CDI ---
Documentation Clarification Form Date: 07/31/2023 09:32:29 AM From: Jina Love RN CCDS Phone: [phone] Admit Date: 07/28/2023 07:48:00 PM Patient Name: Mirza Vines Visit Number: [id number] Discharge Date: ATTENTION: The Clinical Documentation Specialists (CDI) and [facility] Coding Staff appreciate your assistance in clarifying documentation. Please respond to the clarification below the line at the bottom and electronically sign. The CDI & [facility] Coding staff will review the response and follow-up if needed. Please note: Queries are made part of the Legal Health Record. If you have any questions, please contact the author of this message via ITS. Dr. Rina Frankel, DO The patients principal diagnosis the diagnosis that was chiefly responsible for the admission - has not been clearly identified and clarification is requested. The patient presented with the following: weakness, confusion, possible rectal bleeding and lethargic. ED note, 07/28. History/Risk factors:82-year old male presents to ED for bleeding and being less responsive, confused and lethargic. Medical History: Asthma, COPD, GERD/Reflux, Sleep apnea BIPAP/CPAP and Pneumonia. H&P, 07/28 Clinical Indicators: Admitting Diagnosis: H&P, 07/28: Acute metabolic encephalopathy, consider pneumonia. Lab findings, 07/28: Wbc 6.1; Lymphocytes 0.9; Procalcitonin, 07/29: 0.16 Sputum culture, 07/29: Staphylococcus aureus CT abd/pelvis, 07/28: Areas of increased opacity in the bilateral lung bases Vital Signs, 07/28: B/P 184/70; HR 16; Temp 98.1F Oral; SpO2 94% 3L nasal cannula ID consult, 07/29: Positive COVID 19 PCR patient respiratory symptoms are minimal and possible mild COVID 19 infection with concern for mostly consolidation compliant of secondary bacterial pneumonia not entirely excluded, treatment for COVID will be mostly supportive no need for steroids or remdesivir. H&P, 07/28: Due to hemoptysis and finding of pulmonary infiltrates on chest x- ray with report of coughing with consider pneumonia Treatment: 07/28 0.9ns 1L IV bolus; 07/29 Symbicort Inhaler BID; 07/29 Zithromax PO Daily x 3 doses; 07/29 Ceftriaxone IVPB Q24HR Consults: ID see above In your professional opinion, can you please clarify which diagnosis, after study, was the reason chiefly responsible for the admission? [ ] Bacterial Pneumonia please further specify [ ] COVID 19 [ X ] Other, please specify [ ] Unable to determine (Template Last Revised: October 2020) COVID 19 PNA complicated by MSSA PNA MTDD
--- NOTE | 2023-07-31 14:27 | P.PN ---
Subjective Progress Note Date: 07/30/23 Principal diagnosis: Reason for follow-up is covid and possible pneumonia Patient is a 82-year-old male with a past medical history significant for hypertension hyperlipidemia COPD asthma former smoker presenting to the ER for evaluation of weakness , patient did tested positive for covid 19, chest x- ray with basilar atelectasis versus airspace disease. On today's evaluation that is 07/30/2023, the patient remains to be febrile, the patient is breathing comfortably on 3 L nasal cannula oxygen that is baseline for him the patient denies having any shortness of breath no chest pain or worsening cough or sputum production, patient denies Abdominal pain, no nausea /vomiting or diarrhea Patient did have a white count of 6.0, creatinine 0.85, procalcitonin 0.16 Objective - Vital Signs Vital signs: Vital Signs Temp 97.6 F 07/30/23 08:00 Pulse 77 07/30/23 08:00 Resp 17 07/30/23 08:00 BP 137/75 07/30/23 08:00 Pulse Ox 94 L 07/30/23 08:28 FiO2 Intake & Output 07/29/23 07/30/23 07/30/23 18:59 06:59 18:59 Intake Total 600 Output Total 400 Balance 600 -400 Weight 54.431 kg Intake: Oral 600 Output: Urine 400 Other: Voiding Method Urinal Urinal External Catheter Diaper Diaper # Voids 2 # Bowel Movements 0 - Exam GENERAL DESCRIPTION: An elderly male lying in bed in no distress RESPIRATORY SYSTEM: Unlabored breathing , decreased breath sounds at the base HEART: S1 S2 regular rate and rhythm , ABDOMEN: Soft , no tenderness EXTREMITIES: No edema feet - Labs CBC & Chem 7: 07/31/23 05:44 07/31/23 05:44 Labs: Abnormal Lab Results - Last 24 Hours (Table) 07/30/23 07/30/23 Range/Units 04:10 04:10 RBC 3.74 L (4.30-5.90) m/uL Hgb 11.2 L (13.0-17.5) gm/dL Hct 32.6 L (39.0-53.0) % Potassium 3.4 L (3.5-5.1) mmol/L Total Protein 5.5 L (6.3-8.2) g/dL Albumin 2.7 L (3.5-5.0) g/dL Microbiology - Last 24 Hours (Table) 07/29/23 11:41 Gram Stain - Preliminary Sputum Assessment and Plan (1) COVID Status: Acute Code(s): U07.1 - COVID-19 SNOMED Code(s): 863565991 (2) Pneumonia Status: Acute Code(s): J18.9 - PNEUMONIA, UNSPECIFIED ORGANISM SNOMED Code(s): 618962856 Plan: 1patient is 82-year-old male presenting to hospital concerning for weakness confusion and rectal bleeding also noticed to have a positive COVID-19 PCR patient respiratory symptoms are minimal and possible mild COVID-19 infection with concern for mostly basilar consolidation complaint of secondary bacterial pneumonia not entirely excluded, treatment for COVID will be mostly supportive no need for steroids or remdesivir 2-sputum cultures are currently pending 3Patient did have mildly elevated procalcitonin level 4-patient did have some clinical improvement and will continue with the Rocephin and Zithromax Dictation was produced using [employer] dictation software. please excuse any grammatical, word or spelling errors. Time with Patient: Less than 30
--- NOTE | 2023-07-31 14:29 | P.PN ---
Subjective Progress Note Date: 07/31/23 Principal diagnosis: Reason for follow-up is covid and possible pneumonia Patient is a 82-year-old male with a past medical history significant for hypertension hyperlipidemia COPD asthma former smoker presenting to the ER for evaluation of weakness , patient did tested positive for covid 19, chest x- ray with basilar atelectasis versus airspace disease. On today's evaluation that is 07/30/2023, the patient remains to be febrile, the patient is breathing comfortably on 2 L nasal cannula oxygen The patient denies having any shortness of breath no chest pain and denies any worsening cough, patient denies Abdominal pain, no nausea/vomiting or diarrhea Patient did have a white count of 7.7, creatinine 0.89, procalcitonin 0.16, sputum with MSSA Objective - Vital Signs Vital signs: Vital Signs Temp 98.2 F 07/31/23 02:20 Pulse 67 07/31/23 08:00 Resp 16 07/31/23 08:00 BP 134/80 07/31/23 08:00 Pulse Ox 92 L 07/31/23 08:06 FiO2 Intake & Output 07/30/23 07/31/23 07/31/23 18:59 06:59 18:59 Output Total 450 400 Balance -450 -400 Output: Urine 450 400 Other: Voiding Method External Catheter External Catheter External Catheter # Bowel Movements 1 - Exam GENERAL DESCRIPTION: An elderly male lying in bed in no distress RESPIRATORY SYSTEM: Unlabored breathing , decreased breath sounds at the base HEART: S1 S2 regular rate and rhythm , ABDOMEN: Soft , no tenderness EXTREMITIES: No edema feet - Labs CBC & Chem 7: 07/31/23 05:44 07/31/23 05:44 Labs: Abnormal Lab Results - Last 24 Hours (Table) 07/31/23 07/31/23 Range/Units 05:44 05:44 RBC 3.75 L (4.30-5.90) m/uL Hgb 11.1 L (13.0-17.5) gm/dL Hct 32.6 L (39.0-53.0) % Potassium 3.4 L (3.5-5.1) mmol/L Chloride 96 L (98-107) mmol/L Carbon Dioxide 31 H (22-30) mmol/L Glucose 111 H (74-99) mg/dL Microbiology - Last 24 Hours (Table) 07/29/23 11:41 Gram Stain - Final Sputum Sputum Culture - Final Staphylococcus aureus 07/29/23 01:02 Blood Culture - Preliminary Blood Assessment and Plan (1) COVID Status: Acute Code(s): U07.1 - COVID-19 SNOMED Code(s): 278021128 (2) Pneumonia Status: Acute Code(s): J18.9 - PNEUMONIA, UNSPECIFIED ORGANISM SNOMED Code(s): 537808616 Plan: 1patient is 82-year-old male presenting to hospital concerning for weakness confusion and rectal bleeding also noticed to have a positive COVID-19 PCR patient respiratory symptoms are minimal and possible mild COVID-19 infection with concern for mostly basilar consolidation complaint of secondary bacterial pneumonia not entirely excluded, treatment for COVID will be mostly supportive no need for steroids or remdesivir 2-sputum cultures are currently growing MSSA 3Patient did have mildly elevated procalcitonin level 4-patient with underlying COPD and the sputum culture growing MSSA recommend a minimum of 10 day course of therapy discharge antibiotic in the form of Augmentin duration has been adjusted Dictation was produced using [employer] dictation software. please excuse any grammatical, word or spelling errors. Time with Patient: Less than 30
== END 2023-07-31 13:52 | DRG 177 ==
LOC: EC 13:00 → OBSVTOIN 19:48 → 5NMEDONC 19:48 → 2SICU 07-29 02:19
PROVIDERS: ADMIT Family Medicine; ATTEND Family Medicine
DX: U07.1 COVID-19 (principal); G93.41 Metabolic encephalopathy; J96.21 Acute and chronic respiratory failure with hypoxia; J12.82 Pneumonia due to coronavirus disease 2019; J15.211 Pneumonia due to Methicillin susceptible Staphylococcus aureus; R04.2 Hemoptysis; N13.8 Other obstructive and reflux uropathy; K92.1 Melena; J44.0 Chronic obstructive pulmonary disease with (acute) lower respiratory infection; I10 Essential (primary) hypertension; E03.9 Hypothyroidism, unspecified; E78.5 Hyperlipidemia, unspecified; E87.6 Hypokalemia; R31.0 Gross hematuria; K64.4 Residual hemorrhoidal skin tags; K57.30 Diverticulosis of large intestine without perforation or abscess without bleeding; G47.30 Sleep apnea, unspecified; R16.1 Splenomegaly, not elsewhere classified; G62.9 Polyneuropathy, unspecified; N40.1 Benign prostatic hyperplasia with lower urinary tract symptoms; Z99.81 Dependence on supplemental oxygen; Z28.310 Unvaccinated for COVID-19; Z79.890 Hormone replacement therapy; Z79.51 Long term (current) use of inhaled steroids; Z87.891 Personal history of nicotine dependence; Z79.899 Other long term (current) drug therapy
CPT/HCPCS: 36415; 70450; 71046; 74177; 80048; 80053; 80306; 81001; 83605; 83735; 84145; 84484; 85025; 85027; 85610; 85730; 86850; 86900; 86901; 87040; 87070; 87077; 87186; 87205; 87449; 87636; 93005; 94640; 96360; 96361; 99285